=== PATIENT | male | born 1995 | race Caucasian/White ===

== ENCOUNTER 2019-08-13 15:40 | Inpatient (IN) ==
[2019-08-13] MEDS ORDERED: ACETAMINOPHEN 500 MG TAB PO STA (16:25)
--- NOTE | 2019-08-13 16:47 | XRay Report ---
XR chest 1V portable CLINICAL HISTORY: Shortness of breath COMPARISON STUDY: 06/09/2016 FINDINGS: There is been interval removal of the anterior sternal sutures with a single residual parti al suture visualized.[A valvular prosthesis is visualized. The heart is at the upper limits of normal in size. 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 There is no failure. Ther e is no focal pulmonary consolidation. There are no pleural effusions. IMPRESSION: No active disease in the chest. Electronically signed by: Tyler Bashir M.D. 08/13/2019 4:46 PM
[2019-08-13 17:06] LABS: Basophils # (auto) 0.03 K/uL (0-0.2); Basophils % (auto) 0.7 %; Eosinophils # (auto) 0.19 K/uL (0-0.5); Eosinophils % (auto) 4.3 %; Hematocrit (blood only) 43.4 % (42-52); Hemoglobin 15.3 g/dL (14.0-18.0); Lymphocytes % (auto) 26.9 %; Mean Corpuscular Hgb Conc 35.3 g/dL (32-36); Mean Corpuscular Volume 90.8 fL (80-100); Mean Platelet Volume 9.2 fL (7.4-10.4); Monocytes % (auto) 6.7 %; Neutrophils # (auto) 2.74 K/uL (1.4-6.5); Neutrophils % (auto) 61.4 %; Platelet Count 249 K/uL (130-400); RDW Coefficient of Variation 11.8 % (11.5-14.5); RDW Standard Deviation 39.5 fL (36.4-46.3); Red Blood Count 4.78 M/uL (4.7-6.1); White Blood Count 4.46 K/uL (4.8-10.8)
[2019-08-13 17:08] LABS: Appearance Urine Clear (Clear); Bilirubin Urine Negative (Negative); Blood Urine Negative (Negative); Color Urine Yellow; Glucose Urine UA Negative (Negative); Ketones Urine Negative (Negative); Leukocyte Esterase Urine Negative (Negative); Nitrite Urine Negative (Negative); Protein Urine Negative (Negative); Specific Gravity Urine 1.015 (1.000-1.030); Urobilinogen Urine Negative (Negative)
[2019-08-13 17:23] LABS: INR 4.2 (0.9-1.1); Prothrombin Time 38.5 Seconds (9.0-12.0)
[2019-08-13] MEDS ORDERED: GABAPENTIN 600 MG TAB PO SCH (18:00)
[2019-08-13 18:02] LABS: Acetaminophen < 2 ug/ml (10-30)
[2019-08-13 18:03] LABS: Salicylate < 1.7 mg/dl (2.8-20)
[2019-08-13 18:11] LABS: Amphetamines+Metham, Urine Neg (Neg); Barbiturates, Urine Neg (Neg); Benzodiazepine, Urine Neg (Neg); Cocaine, Urine Neg (Neg); MDMA (Ecstacy), Urine Neg (Neg); Methadone, Urine Neg (Neg); Opiate, Urine Neg (Neg); Phencyclidine, Urine Neg (Neg)
[2019-08-13 18:29] LABS: Alanine Aminotransferase 33 U/L (12-78); Albumin Globulin Ratio 1.3 (0.9-2); Albumin Level 4.5 gm/dl (3.4-5.0); Alkaline Phosphatase 52 U/L (45-117); BUN Creatinine Ratio 20.5 (10-20); Bilirubin,Total 0.3 mg/dl (0.2-1); Blood Urea Nitrogen 19 mg/dl (7-18); Calcium 9.4 mg/dl (8.5-10.1); Carbon Dioxide 27 mmol/L (21-32); Chloride 105 mmol/L (98-107); Creatine Kinase MB < 1.0 ng/ml (0.5-3.6); Creatinine Clr Calc Pharmacy 103.6 ml/min; Est GFR (African American) 130.1; Est GFR (Non-African American) 112.2; Globulin 3.5 gm/dl (2.5-4.0); Glucose 93 mg/dl (70-99); Sodium 135 mmol/L (136-145); Troponin I < 0.015 ng/ml (0-0.045)
--- NOTE | 2019-08-13 19:35 | Emergency Department Note ---
Entered by Alyson Diaz acting as a scribe for History of Present Illness General Chief complaint: Mental Health Evaluation Stated complaint: MENTAL HEALTH EVAL Time Seen by Provider: 08/13/19 16:07 Source: patient History of Present Illness Provider complaint: Mental Health Evaluation Onset (ago): day(s) 1 Location: head Maximum Pain Intensity: 3 Relieved By: + none Exacerbated By: + none Associated symptoms: + other (Positive SI) The patient is a 24 year old male who presents to the Emergency Room for a mental health evaluation for symptoms that began yesterday. The patient states his symptoms are not relieved nor exacerbated by anything specific. The patient reports experiencing suicidal ideation and has been researching plans online to use nitrous oxide. The patient reports feeling like school is "pointless but denies having problems at home. The patient mentioned he has an extensive cardiac history which he takes Coumadin for and his cardiac surgeries have left him with chronic pain.The patient states that he sees a psychiatrist at [facility] every 6 weeks and they became concerned about his well being. Home Medications Home Medications Medication Instructions Recorded Confirmed Type acetaminophen 1,000 mg PO QID PRN 08/13/19 08/13/19 History diphenhydramine HCl [Benadryl] 25 mg PO HS PRN 08/13/19 08/13/19 History duloxetine [Cymbalta] 120 mg PO DAILY 08/13/19 08/13/19 History fexofenadine-pseudoephedrine 1 tab PO QAM 08/13/19 08/13/19 History [Archana-D 24 Hour] gabapentin 600 mg PO TID 08/13/19 08/13/19 History lisinopril [Zestril] 10 mg PO DAILY 08/13/19 08/13/19 History quetiapine [Seroquel] 100 mg PO HS 08/13/19 08/13/19 History terbinafine HCl 1 applic TOPICAL DAILY 08/13/19 08/13/19 History warfarin 3 mg PO [id number] 08/13/19 08/13/19 History warfarin [Coumadin] 2 mg PO [id number] 08/13/19 08/13/19 History Allergies Allergy/AdvReac Type Severity Reaction Status Date / Time doxycycline Allergy Unknown HIVES Verified 08/13/19 20:15 Tetracyclines Allergy Unknown Hives Verified 08/13/19 20:15 measles, mumps, and rubella Allergy Unknown Verified 08/13/19 20:15 vaccine [From M-M-R II] sepideh Allergy Severe Uncoded 08/14/19 02:21 Past Med/Surg History Medical History (Updated 08/18/19 @ 18:31 by Ferdinand Dockery MD) Ascending aorta dilatation Depression Pacemaker Family History Other No pertinent family history in first degree relatives Social History Preferred Language: Kyrgyz Communication Ability: Effective 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 and A total of 10 systems reviewed and were otherwise negative Physical Exam Vital Signs Vital Signs - 24 hr 08/13/19 15:48 08/13/19 17:51 Temperature 36.4 C L Temperature Source Oral Pulse Rate 86 Pulse Rate [Finger] 82 Respiratory Rate 16 18 Respiratory Effort / Characteristics Non-Labored Spontaneous Respiratory Depth Normal Blood Pressure 147/85 H Blood Pressure [Left Arm] 121/73 Blood Pressure Mean 105 Blood Pressure Mean [Left Arm] 89 Blood Pressure Position Sitting Pulse Oximetry 98 100 Oxygen Delivery Method Room Air Room Air Sepsis Recent Fever Within 48 Hours No Sepsis New/Unexplained Change in Mental Status No Sepsis Action Taken by Nursing No Action Required GENERAL: Awake, alert, well-appearing, in no acute distress HENT: Normocephalic, atraumatic. Oropharynx unremarkable. EYES: Normal conjunctiva. Sclera non-icteric. NECK: Supple. No nuchal rigidity. FROM. No JVD. RESPIRATORY: Clear to auscultation. CARDIAC: Regular rate, normal rhythm. Extremities warm and well perfused. Pulses equal. ABDOMEN: Soft, non-distended. No tenderness to palpation. No rebound or guarding. No masses. RECTAL: Deferred. MUSCULOSKELETAL: Chest examination reveals no tenderness. The back is symmetrical on inspection without obvious abnormality. There is no CVA tenderness to palpation. No joint edema. LOWER EXTREMITIES: Calves are equal size bilaterally and non-tender. No edema. No discoloration. NEURO: Normal sensorium. No sensory or motor deficits noted. SKIN: No rash or jaundice noted. Course Course 1616: Past medical records reviewed. The patient was evaluated in room A07. A complete history and physical exam was performed. Administered Medications Acetaminophen (Tylenol) 650 mg PO Q4H PRN PRN Reason: Pain Stop: 09/14/19 07:58 Last Admin: 08/16/19 07:46 Dose: 650 mg Documented by: [id number] Diphenhydramine HCl (Benadryl Capsule) 25 mg PO BID PRN PRN Reason: Sleep Stop: 09/12/19 21:15 Last Admin: 08/16/19 08:50 Dose: 25 mg Documented by: [id number] Duloxetine HCl (Cymbalta) 60 mg PO QAM FRANK; Taper Stop: 08/21/19 08:59 Last Admin: 08/18/19 08:44 Dose: 60 mg Documented by: [id number] Admin: 08/17/19 08:34 Dose: 60 mg Documented by: [id number] Admin: 08/16/19 08:49 Dose: 90 mg Documented by: [id number] Admin: 08/15/19 08:19 Dose: 90 mg Documented by: [id number] Famotidine (Pepcid) 20 mg PO BID FRANK Stop: 09/14/19 20:59 Last Admin: 08/18/19 08:44 Dose: 20 mg Documented by: [id number] Admin: 08/17/19 21:17 Dose: 20 mg Documented by: [id number] Admin: 08/17/19 08:35 Dose: 20 mg Documented by: [id number] Admin: 08/16/19 22:14 Dose: 20 mg Documented by: [id number] Admin: 08/16/19 08:49 Dose: 20 mg Documented by: [id number] Admin: 08/15/19 22:26 Dose: 20 mg Documented by: [id number] Fexofenadine HCl/Pseudoephedrine (Archana-D 12 Hr) 1 tab PO QAM FRANK Stop: 09/13/19 08:59 Last Admin: 08/18/19 08:43 Dose: 1 tab Documented by: [id number] Admin: 08/17/19 08:33 Dose: 1 tab Documented by: [id number] Admin: 08/16/19 08:50 Dose: 1 tab Documented by: [id number] Admin: 08/15/19 08:18 Dose: 1 tab Documented by: [id number] Admin: 08/14/19 08:44 Dose: 1 tab Documented by: [id number] Gabapentin (Neurontin) 600 mg PO TIDM FRANK Stop: 09/15/19 17:44 Last Admin: 08/18/19 18:05 Dose: 600 mg Documented by: [id number] Admin: 08/18/19 12:44 Dose: 600 mg Documented by: [id number] Admin: 08/18/19 08:44 Dose: 600 mg Documented by: [id number] Admin: 08/17/19 17:28 Dose: 600 mg Documented by: [id number] Admin: 08/17/19 12:32 Dose: 600 mg Documented by: [id number] Admin: 08/17/19 08:35 Dose: 600 mg Documented by: [id number] Admin: 08/16/19 17:21 Dose: 600 mg Documented by: [id number] Hydroxyzine HCl (Vistaril) 25 mg PO Q4H PRN PRN Reason: Anxiety Stop: 09/12/19 20:56 Last Admin: 08/15/19 10:43 Dose: 25 mg Documented by: [id number] Lisinopril (Zestril) 10 mg PO [facility] Stop: 09/13/19 21:59 Last Admin: 08/17/19 21:17 Dose: 10 mg Documented by: [id number] Admin: 08/16/19 22:15 Dose: 10 mg Documented by: [id number] Admin: 08/15/19 22:27 Dose: 10 mg Documented by: [id number] Admin: 08/14/19 21:28 Dose: 10 mg Documented by: [id number] Quetiapine Fumarate (Seroquel) 100 mg PO [facility] Stop: 09/13/19 20:59 Last Admin: 08/17/19 21:17 Dose: 100 mg Documented by: [id number] Admin: 08/16/19 22:15 Dose: 100 mg Documented by: [id number] Admin: 08/15/19 22:26 Dose: 100 mg Documented by: [id number] Admin: 08/14/19 21:14 Dose: 100 mg Documented by: [id number] Admin: 08/14/19 00:05 Dose: 100 mg Documented by: [id number] Terbinafine HCl (Lamisil At) 1 appln EXT DAILY FRANK Stop: 09/13/19 08:59 Last Admin: 08/18/19 08:47 Dose: 1 appln Documented by: [id number] Admin: 08/17/19 08:34 Dose: Not Given Documented by: [id number] Admin: 08/16/19 08:54 Dose: Not Given Documented by: [id number] Admin: 08/15/19 08:26 Dose: Not Given Documented by: [id number] Admin: 08/14/19 08:46 Dose: 1 appln Documented by: [id number] Venlafaxine HCl (Effexor Extended Release) 75 mg PO QAM FRANK; Taper Stop: 09/18/19 08:59 Last Admin: 08/18/19 08:44 Dose: 75 mg Documented by: [id number] Admin: 08/17/19 08:34 Dose: 75 mg Documented by: [id number] Admin: 08/16/19 08:49 Dose: 37.5 mg Documented by: [id number] Admin: 08/15/19 08:19 Dose: 37.5 mg Documented by: [id number] Warfarin Sodium (Coumadin) 3 mg PO [id number]@1600 FRANK Stop: 09/13/19 15:59 Last Admin: 08/18/19 15:57 Dose: 3 mg Documented by: [id number] Warfarin Sodium (Coumadin) 2 mg PO [id number]@1600 FRANK Stop: 09/13/19 15:59 Last Admin: 08/17/19 16:15 Dose: 2 mg Documented by: [id number] Admin: 08/16/19 15:54 Dose: 2 mg Documented by: [id number] Admin: 08/15/19 15:30 Dose: 2 mg Documented by: [id number] Admin: 08/14/19 16:00 Dose: 2 mg Documented by: [id number] Discontinued Medications Acetaminophen (Tylenol) 1,000 mg PO NOW STA Stop: 08/13/19 16:26 Last Admin: 08/13/19 17:55 Dose: Not Given Documented by: [id number] Acetaminophen (Tylenol) 1,000 mg PO QID PRN PRN Reason: Pain Stop: 09/12/19 21:14 Last Admin: 08/15/19 06:05 Dose: 500 mg Documented by: [id number] Admin: 08/14/19 22:17 Dose: 1,000 mg Documented by: [id number] Acetaminophen (Tylenol) 500 mg PO NOW STA Stop: 08/15/19 08:04 Last Admin: 08/15/19 08:18 Dose: 500 mg Documented by: [id number] Dul[facility]) [facility] Stop: 09/13/19 08:59 Last Admin: 08/14/19 08:44 Dose: 120 mg Documented by: [id number] Famotidine (Pepcid) 20 mg PO QAM [facility] Stop: 09/14/19 08:59 Last Admin: 08/15/19 08:40 Dose: Not Given Documented by: [id number] Gabapentin (Neurontin) 600 mg PO TID [facility] Stop: 09/12/19 17:59 Last Admin: 08/13/19 17:57 Dose: 600 mg Documented by: [id number] Gabapentin (Neurontin) 600 mg PO TID [facility] Stop: 09/13/19 08:59 Last Admin: 08/16/19 13:32 Dose: 600 mg Documented by: [id number] Admin: 08/16/19 08:49 Dose: 600 mg Documented by: [id number] Admin: 08/15/19 22:27 Dose: 600 mg Documented by: [id number] Admin: 08/15/19 14:44 Dose: 600 mg Documented by: [id number] Admin: 08/15/19 08:19 Dose: 600 mg Documented by: [id number] Admin: 08/14/19 21:14 Dose: 600 mg Documented by: [id number] Admin: 08/14/19 13:34 Dose: 600 mg Documented by: [id number] Admin: 08/14/19 08:45 Dose: 600 mg Documented by: [id number] Medical Decision Making Differential Diagnosis Differential diagnosis: Etiologies such as psychiatric disorder, infection, hypoglycemia, electrolyte abnormalities, cardiac sources, intracerebral event, toxicological process, neurologic disorder, as well as others were entertained. Medical Records Attestation: I reviewed the patient's medical records. Home Medications Current Medication List: was personally reviewed by me Laboratory Data Attestation: I reviewed the patient's lab results. Result diagrams: 08/14/19 07:36 08/14/19 07:36 Lab Results 08/13/19 08/13/19 08/13/19 Range/Units 16:49 16:49 16:49 WBC 4.46 L (4.8-10.8) K/uL RBC 4.78 (4.7-6.1) M/uL Hgb 15.3 (14.0-18.0) g/dL Hct 43.4 (42-52) % MCV 90.8 (80-100) fL MCH 32.0 (25-34) pg MCHC 35.3 (32-36) g/dL RDW Std Deviation 39.5 (36.4-46.3) fL RDW Coeff of Nella 11.8 (11.5-14.5) % Plt Count 249 (130-400) K/uL MPV 9.2 (7.4-10.4) fL Immature Gran % (Auto) 0.0 % Neut % (Auto) 61.4 % Lymph % (Auto) 26.9 % Maverick % (Auto) 6.7 % Eos % (Auto) 4.3 % Baso % (Auto) 0.7 % Immature Gran # (Auto) 0.00 (0.00-0.02) K/uL Neut # (Auto) 2.74 (1.4-6.5) K/uL Lymph # (Auto) 1.20 (1.2-3.4) K/uL Maverick # (Auto) 0.30 (0.11-0.59) K/uL Eos # (Auto) 0.19 (0-0.5) K/uL Baso # (Auto) 0.03 (0-0.2) K/uL PT (9.0-12.0) Seconds INR (0.9-1.1) Sodium 135 L (136-145) mmol/L Potassium (3.5-5.1) mmol/L Chloride 105 (98-107) mmol/L Carbon Dioxide 27 (21-32) mmol/L Anion Gap 3.0 (3-11) BUN 19 H (7-18) mg/dl Creatinine 0.94 (0.6-1.4) mg/dl Est Cr Clr Drug Dosing 103.6 ml/min Est GFR ( Amer) 130.1 Est GFR (Non-Af Amer) 112.2 BUN/Creatinine Ratio 20.5 H (10-20) Glucose 93 (70-99) mg/dl Calcium 9.4 (8.5-10.1) mg/dl Total Bilirubin 0.3 (0.2-1) mg/dl AST (15-37) U/L ALT 33 (12-78) U/L Alkaline Phosphatase 52 (45-117) U/L Total Creatine Kinase (39-308) U/L CK-MB (CK-2) < 1.0 (0.5-3.6) ng/ml CK/CKMB % Calc TNP Troponin I < 0.015 (0-0.045) ng/ml Total Protein 8.0 (6.4-8.2) gm/dl Albumin 4.5 (3.4-5.0) gm/dl Globulin 3.5 (2.5-4.0) gm/dl Albumin/Globulin Ratio 1.3 (0.9-2) TSH 1.450 (0.300-4.500) uIu/ml Urine Color Urine Appearance (Clear) Urine pH (4.5-7.5) Ur Specific [place] (1.000-1.030) Urine Protein (Negative) Urine Glucose (UA) (Negative) Urine Ketones (Negative) Urine Blood (Negative) Urine Nitrite (Negative) Urine Bilirubin (Negative) Urine Urobilinogen (Negative) Ur Leukocyte Esterase (Negative) Salicylates < 1.7 L (2.8-20) mg/dl Urine Opiates Screen (Neg) Ur Methadone, Qual (Neg) Acetaminophen < 2 L (10-30) ug/ml Urine Barbiturates (Neg) Ur Phencyclidine (PCP) (Neg) U Amphetamin/Meth Scrn (Neg) MDMA (Ecstasy) Screen (Neg) U Benzodiazepines Scrn (Neg) Ur Cocaine Metabolite (Neg) U Marijuana (THC) Screen (Neg) Ethyl Alcohol mg/dL (0-3) mg/dl 08/13/19 08/13/19 08/13/19 Range/Units 16:49 16:49 16:50 WBC (4.8-10.8) K/uL RBC (4.7-6.1) M/uL Hgb (14.0-18.0) g/dL Hct (42-52) % MCV (80-100) fL MCH (25-34) pg MCHC (32-36) g/dL RDW Std Deviation (36.4-46.3) fL RDW Coeff of Nella (11.5-14.5) % Plt Count (130-400) K/uL MPV (7.4-10.4) fL Immature Gran % (Auto) % Neut % (Auto) % Lymph % (Auto) % Maverick % (Auto) % Eos % (Auto) % Baso % (Auto) % Immature Gran # (Auto) (0.00-0.02) K/uL Neut # (Auto) (1.4-6.5) K/uL Lymph # (Auto) (1.2-3.4) K/uL Maverick # (Auto) (0.11-0.59) K/uL Eos # (Auto) (0-0.5) K/uL Baso # (Auto) (0-0.2) K/uL PT 38.5 H (9.0-12.0) Seconds INR 4.2 H (0.9-1.1) Sodium (136-145) mmol/L Potassium (3.5-5.1) mmol/L Chloride (98-107) mmol/L Carbon Dioxide (21-32) mmol/L Anion Gap (3-11) BUN (7-18) mg/dl Creatinine (0.6-1.4) mg/dl Est Cr Clr Drug Dosing ml/min Est GFR ( Amer) Est GFR (Non-Af Amer) BUN/Creatinine Ratio (10-20) Glucose (70-99) mg/dl Calcium (8.5-10.1) mg/dl Total Bilirubin (0.2-1) mg/dl AST (15-37) U/L ALT (12-78) U/L Alkaline Phosphatase (45-117) U/L Total Creatine Kinase (39-308) U/L CK-MB (CK-2) (0.5-3.6) ng/ml CK/CKMB % Calc Troponin I (0-0.045) ng/ml Total Protein (6.4-8.2) gm/dl Albumin (3.4-5.0) gm/dl Globulin (2.5-4.0) gm/dl Albumin/Globulin Ratio (0.9-2) TSH (0.300-4.500) uIu/ml Urine Color Urine Appearance (Clear) Urine pH (4.5-7.5) Ur Specific [place] (1.000-1.030) Urine Protein (Negative) Urine Glucose (UA) (Negative) Urine Ketones (Negative) Urine Blood (Negative) Urine Nitrite (Negative) Urine Bilirubin (Negative) Urine Urobilinogen (Negative) Ur Leukocyte Esterase (Negative) Salicylates (2.8-20) mg/dl Urine Opiates Screen Neg (Neg) Ur Methadone, Qual Neg (Neg) Acetaminophen (10-30) ug/ml Urine Barbiturates Neg (Neg) Ur Phencyclidine (PCP) Neg (Neg) U Amphetamin/Meth Scrn Neg (Neg) MDMA (Ecstasy) Screen Neg (Neg) U Benzodiazepines Scrn Neg (Neg) Ur Cocaine Metabolite Neg (Neg) U Marijuana (THC) Screen Neg (Neg) Ethyl Alcohol mg/dL < 3.0 (0-3) mg/dl 08/13/19 Range/Units 16:50 WBC (4.8-10.8) K/uL RBC (4.7-6.1) M/uL Hgb (14.0-18.0) g/dL Hct (42-52) % MCV (80-100) fL MCH (25-34) pg MCHC (32-36) g/dL RDW Std Deviation (36.4-46.3) fL RDW Coeff of Nella (11.5-14.5) % Plt Count (130-400) K/uL MPV (7.4-10.4) fL Immature Gran % (Auto) % Neut % (Auto) % Lymph % (Auto) % Maverick % (Auto) % Eos % (Auto) % Baso % (Auto) % Immature Gran # (Auto) (0.00-0.02) K/uL Neut # (Auto) (1.4-6.5) K/uL Lymph # (Auto) (1.2-3.4) K/uL Maverick # (Auto) (0.11-0.59) K/uL Eos # (Auto) (0-0.5) K/uL Baso # (Auto) (0-0.2) K/uL PT (9.0-12.0) Seconds INR (0.9-1.1) Sodium (136-145) mmol/L Potassium (3.5-5.1) mmol/L Chloride (98-107) mmol/L Carbon Dioxide (21-32) mmol/L Anion Gap (3-11) BUN (7-18) mg/dl Creatinine (0.6-1.4) mg/dl Est Cr Clr Drug Dosing ml/min Est GFR ( Amer) Est GFR (Non-Af Amer) BUN/Creatinine Ratio (10-20) Glucose (70-99) mg/dl Calcium (8.5-10.1) mg/dl Total Bilirubin (0.2-1) mg/dl AST (15-37) U/L ALT (12-78) U/L Alkaline Phosphatase (45-117) U/L Total Creatine Kinase (39-308) U/L CK-MB (CK-2) (0.5-3.6) ng/ml CK/CKMB % Calc Troponin I (0-0.045) ng/ml Total Protein (6.4-8.2) gm/dl Albumin (3.4-5.0) gm/dl Globulin (2.5-4.0) gm/dl Albumin/Globulin Ratio (0.9-2) TSH (0.300-4.500) uIu/ml Urine Color Yellow Urine Appearance Clear (Clear) Urine pH 5.0 (4.5-7.5) Ur Specific [place] 1.015 (1.000-1.030) Urine Protein Negative (Negative) Urine Glucose (UA) Negative (Negative) Urine Ketones Negative (Negative) Urine Blood Negative (Negative) Urine Nitrite Negative (Negative) Urine Bilirubin Negative (Negative) Urine Urobilinogen Negative (Negative) Ur Leukocyte Esterase Negative (Negative) Salicylates (2.8-20) mg/dl Urine Opiates Screen (Neg) Ur Methadone, Qual (Neg) Acetaminophen (10-30) ug/ml Urine Barbiturates (Neg) Ur Phencyclidine (PCP) (Neg) U Amphetamin/Meth Scrn (Neg) MDMA (Ecstasy) Screen (Neg) U Benzodiazepines Scrn (Neg) Ur Cocaine Metabolite (Neg) U Marijuana (THC) Screen (Neg) Ethyl Alcohol mg/dL (0-3) mg/dl Imaging Data Radiologist's Impression: Radiology results as stated below per my review and the radiologist's interpretation: XR chest 1V portable CLINICAL HISTORY: Shortness of breath COMPARISON STUDY: 06/09/2016 FINDINGS: There is been interval removal of the anterior sternal sutures with a single residual partial suture visualized.[A valvular prosthesis is visualized. The heart is at the upper limits of normal in size. 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 There is no failure. There is no focal pulmonary consolidation. There are no pleural effusions. IMPRESSION: No active disease in the chest. Electronically signed by: Tyler Bashir M.D. 08/13/2019 4:46 PM ECG Data Attestation: I personally reviewed and interpreted this ECG as follows: Indication: + other (Mental Health Evaluation) Rate (beats per minute): 83 Rhythm: + other (Atrial sensed ventricular paced rhythm ) ECG Intervals/blocks: + Normal QT-c (QTC of 533) ECG Findings: + PVCs Blood Pressure Blood Pressure Findings: Elevated blood pressure Blood Pressure Disposition: Referred to patients primary care provider MDM Narrative This is a 24-year-old male who presents to the emergency department complaining of mood disorder. The patient reports he has a plan to kill himself using nitrous. He is on chronic Coumadin for a valve replacement. His Coumadin here was found to be elevated. I feel he can skip this 1 night. He was medically cleared by me. I did discuss the case with the 3 S. liaison who admitted the anatoliy moore. Patient was in agreement with the treatment plan. Impression & Plan Chronic anticoagulation, Mood disorder Discharge Plan Visit Data *Final* Discharge Date/Time: 08/13/19 21:51 Chief Complaint: Mental Health Evaluation Stated Complaint: MENTAL HEALTH EVAL ED Provider: Ferdinand Dockery Discharge Problem: Chronic anticoagulation, Mood disorder Patient Disposition: Admitted As Inpatient Discharge Instructions Interventions: ED Discharge Assessment Last Done: 08/13/19 21:51 The scribe's documentation has been prepared under my direction and personally reviewed by me in its entirety. I confirm that the note above accurately reflects all work, treatment, procedures, and medical decision making performed by me.
[2019-08-13] MEDS ORDERED: SODIUM CHLORIDE 0.65% NA SOLN 45 ML (OCEAN) PRN (20:57)
[2019-08-13] MEDS ORDERED: BISMUTH SUBSALICYLATE PER ML OMNICELL CHARGE PO PRN (20:57)
[2019-08-13] MEDS ORDERED: ALUMINUM/MAGNESIUM SUSP 30 ML UDC PO PRN (20:57)
[2019-08-13] MEDS ORDERED: MAGNESIUM HYDROXIDE SUSP 30 ML UDC PO PRN (20:57)
[2019-08-14] MEDS: QUETIAPINE FUMARATE 200 MG TAB PO SCH ×2 (00:05→21:14)
[2019-08-14 07:57] LABS: Basophils # (auto) 0.03 K/uL (0-0.2); Basophils % (auto) 0.7 %; Eosinophils % (auto) 4.5 %; Hematocrit (blood only) 42.2 % (42-52); Hemoglobin 14.9 g/dL (14.0-18.0); Lymphocytes # (auto) 1.54 K/uL (1.2-3.4); Mean Corpuscular Hgb Conc 35.3 g/dL (32-36); Mean Corpuscular Volume 90.8 fL (80-100); Mean Platelet Volume 9.3 fL (7.4-10.4); Monocytes # (auto) 0.33 K/uL (0.11-0.59); Monocytes % (auto) 7.5 %; Neutrophils % (auto) 52.3 %; Platelet Count 230 K/uL (130-400); RDW Coefficient of Variation 11.9 % (11.5-14.5); Red Blood Count 4.65 M/uL (4.7-6.1)
[2019-08-14 08:09] LABS: INR 3.4 (0.9-1.1); Prothrombin Time 32.1 Seconds (9.0-12.0)
[2019-08-14 08:33] LABS: BUN Creatinine Ratio 16.6 (10-20); Calcium 9.6 mg/dl (8.5-10.1); Creatinine Clr Calc Pharmacy 95.7 ml/min; Est GFR (African American) 125.2; Est GFR (Non-African American) 108.1; Magnesium 2.4 mg/dl (1.8-2.4)
[2019-08-14] MEDS: FEXOFENADINE 60MG/PSEUDOEPHEDRINE 120MG TAB PO SCH (08:44)
[2019-08-14] MEDS: GABAPENTIN 600 MG TAB PO SCH ×3 (08:45→21:14)
[2019-08-14] MEDS: TERBINAFINE CR 30 GM TUBE EXT SCH (08:46)
[2019-08-14] MEDS ORDERED: lisinopriL 10 MG TAB PO SCH (09:00)
[2019-08-14] MEDS ORDERED: DULOXETINE HCL 60 MG CAP PO SCH (09:00)
--- NOTE | 2019-08-14 09:23 | History & Physical ---
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 He has a PA locally but no therapist, and is interested in case management and therapist locally. He would like to try a different antidepressant as he's lost yrn in duloxetine, and agreed to a trial of venlafaxine. Inpatient treatment is medically necessary due to the risk for suicide if discharged. (1) Depression: 08/14 -continue voluntary inpatient treatment for worsening mood and torin cidal ideation with multiple plans. Every 15 minute checks for safety. -Encourage group participation, work on healthy coping skills and discharge safety plan. -Coordinate with outpatient clinicians (including psychiatrist in his home town whom he still sees); family meeting with supports. -Discussed several options, including titrating quetiapine (which he declined due to side effects on higher doses in the past), switching quetiapine to another augmenting agent, or switching duloxetine to another antidepressant. Discussed options of SSRIs or SNRI's, and he ultimately agreed to a trial of v enlafaxine XR after review of risks, benefits, and side effects. Orders written for cross taper over the next 6 days; monitor and may need to slow taper if he experiences any side effects. -Will continue quetiapine 100mg HS. Order FLP and FG for monitoring on an atypical antipsychotic, as states he never had them. -Get records from Azucena Alonzo at [facility]. [facility], and help him to follow up on [facility] referral (states he called [facility] multiple times, but never heard back). Depression Type: major depressive disorder Major depression recurrence: recurrent Active/Remission status: currently active Major depression episode severity: severe Psychotic features: without psychotic features Qualified Code(s): F33.2 - Major depressive disorder, recurrent severe without psychotic features Present on Admission?: Yes (2) Pacemaker: 08/14 -was consult placed on admission, and Coumadin held due to INR 4.2. -INR 3.4 today, and Coumadin has been resumed. Appreciate recommendations. 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 Chief Complaint "Well I was having like suicidal thoughts". History of Present Illness Patient presented to the ER yesterday 08/13/2019 on referral from his outpatient physician speech assistant, Azucena Alonzo, at [facility]. He endorsed worsening suicidal thoughts, stated he did not want to live, and had been researching ways to end his life that would be painless. He had been reading about "exit bags," which she described as putting a bag over his head and releasing nitrogen so that he would be unconscious within 2 breaths. He had also looked into getting an IV and allowing blood to drain out of him until he , and jumping out of his apartment window headfirst. He reported hopelessness and the feeling that everything he does is pointless. He reported chronic sternal pain status post cardiac surgery and chronic tinnitus. CBC notable for WBC 4.40 and RBC 4.65, INR 4.2 (3.4 this morning), CMP and TSH normal, UA and toxicology screens negative, troponin and CK-MB negative. 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 EKG showed ventricular placed rhythm with PVCs, QTC 533. A hospitalist consult was placed due to his cardiac disease and supratherapeutic INR. He signed in voluntarily, and was continued on his home medications: Gabapentin 600 mg 3 times daily and 100 mg at bedtime, duloxetine 120 mg daily, and quetiapine 100 mg at bedtime. On my assessment, he reports depression since around 14 years old, with treatment starting about a year ago. He never fully recovered, but SI got better. Depressive symptoms include difficulty falling and staying asleep, sadness, crying spells, restlessness, hopelessness, and difficulty functioning. Exacerbated by chronic pain, school, and tinnitus. Reports SI in the past (when hospitalized last year), and started have SI again a couple of weeks ago, at which point he started seeing PA at [facility] more often. He admits to research as above, looking for a painless way to kill himself. He states the only thing that's stopped him from ending his life is lack of access to the things he would need, noting he wants to use a nonviolent, painless method. He has looked at his medication and tried to figure out what he could overdose on, and reports thinking a lot about using nitrogen or some other gas that would replace oxygen to "knock me out, suffocate," as this would be painless. He denies that he has access to gas, but says "that would be the next step." Has had problems with anxiety, h/o ZAYRA, but reports currently depression is worse than anxiety. Reports excessive worry, difficulty managing worry, and sleep impairment. Denies h/o jose antonio, psychosis, and PTSD. Notes he "pays too close attention to symptoms in my body," for example his pain and tinnitus, but denies other OCD symptoms. States current medications were started at [facility] and initially seemed to help, but then symptoms worsened a couple of months ago, and duloxetine was increased, which initially seemed to help. Quetiapine was initially 50mg HS but when sleep worsened it was increased to 100mg HS (about a month ago). The only side effect he's noted is weight gain (10 lbs in a year, but BMI 20, is not concerned about current weight). Notes he has a "major presentation" next week which he is stressed about, as it is his [employer] project for his major. States he has been "functioning fine, but it's the downtime...feel like I'm wasting so much time, time goes by so slowly." He is frustrated and upset by his sense of un rest/unhappiness, and isn't sure where it is coming from. Notes he is only taking 2 classes "in case my pain flares up." Notes he did better when he also had a job as he had more structure. Past Psychiatric History Previous Psych History: H/o depression since age 14, had brief trial of sertraline but not formal treatment. First got psychiatric treatment last year when hospitalized at [facility] for SI, then did day program. Was diagnosed with MDD and ZAYRA. H/o self injurious behavior by punching his legs several years ago "when really stressed." Current Psychiatric Diagnosis: Depression Outpatient Services: MADYSON Chairez at [facility] in [place]. No therapist locally. Psychiatrist at home in the [place] (Dr. Jennifer Villasenor at [facility]) area who he sees every 6 weeks - started after [facility] hospitalization 2 therapists at home - one through insurance and one from a day program he was in whom he sees at times and pays privately. Previously saw therapist at [facility] briefly. Previous Psych Admissions: [facility] - 2018? Do You Have Access To A Gun?: No History of Previous Suicide Attempt: Yes Describe Attempts in the Past: Put a plastic bag over head to strangle 09/2017 Past Medication Trials: sertraline - brief trial in , didn't think it was work ing and stopped taking it, also notes he didn't want to take meds and was "protesting against my mom for making me feel like I had psychological issues." quetiapine - was on 150mg in the past and felt it caused his heart to "beat really fast" Allergies Allergy/AdvReac Type Severity Reaction Status Date / Time doxycycline Allergy Unknown HIVES Verified 08/13/19 20:15 Tetracyclines Allergy Unknown Hives Verified 08/13/19 20:15 measles, mumps, and rubella Allergy Unknown Verified 08/13/19 20:15 vaccine [From M-M-R II] sepideh Allergy Severe Uncoded 08/14/19 02:21 Home Medications Home Medications Medication Instructions Recorded Confirmed Type acetaminophen 1,000 mg PO QID PRN 08/13/19 08/13/19 History diphenhydramine HCl [Benadryl] 25 mg PO HS PRN 08/13/19 08/13/19 History duloxetine [Cymbalta] 120 mg PO DAILY 08/13/19 08/13/19 History fexofenadine-pseudoephedrine 1 tab PO QAM 08/13/19 08/13/19 History [Archana-D 24 Hour] gabapentin 600 mg PO TID 08/13/19 08/13/19 History lisinopril [Zestril] 10 mg PO DAILY 08/13/19 08/13/19 History quetiapine [Seroquel] 100 mg PO HS 08/13/19 08/13/19 History terbinafine HCl 1 applic TOPICAL DAILY 08/13/19 08/13/19 History warfarin 3 mg PO 2XWK 08/13/19 08/13/19 History warfarin [Coumadin] 2 mg PO USEASDIRECTD 08/13/19 08/13/19 History Family History Family History of: Depression Family Mental Health History Comment: Mother: Depression Alcohol History Hx of Alcohol Use Over the Past 12 Months: No AUDIT Total Score: 0 Smoking Use Have You Smoked or Used Tobacco Products in the Last 30 Days: No Smoking Status: Never smoker Substance History Hx of Prescription Med Misuse Over the Past 12 Months: No Hx of Over the Counter Med Misuse Over the Past 12 Months: No Hx of Inhalent Misuse Over the Past 12 Months: No Hx of Organic Substance Use Over the Past 12 Months: No Hx of Illegal Substances/Street Drug Use Over Past 12 Months: No Problems as a Result of Past Substance Use: None Identified Personal History Living Arrangements: Apartment Living Arrangements Comments: From [facility] Childhood: Raised by both parents, has one younger sister who is also at [employer]. Reports good relationship with family. Highest Grade Completed: College Highest Grade Completed Comment: [employer] senior majoring in electrical engineering Employment Status: Student Marital Status: Single Beliefs That Will Affect Care: None Current Legal Problems: No Hx Traumatic Life Events: No Additional Comments: Volunteers at [employer], and joined a [employer] club Patient History Medical History (Updated 08/14/19 @ 10:24 by Lawanda Burch MD) Ascending aorta dilatation Depression Pacemaker Family History Other No pertinent family history in first degree relatives Social History Preferred Language: Irish Communication Ability: Effective Bell Spinner Sousaphones Required: No Beliefs That Will Affect Care: None Feels Safe at Home: Yes Smoking Status: Never smoker Review of Systems Review of Systems: All systems reviewed & are unremarkable except as noted in HPI & below chest pain, tinnitus Physical Exam Psychiatric: Orientation: alert, oriented x 3 and cooperative Apperance: appropriately dressed, appropriately groomed and appeared stated age thin, casually dressed in corduroys and a [employer] sweatshirt Eye Contact: + fair eye contact Motor Behavior: steady gait and station and no abnormal motor movements soft voice Affect: + depressed affect, + constricted affect and mood congruent with affect Mood: + depressed mood Thought Process: goal directed thought process Thought Content: reality based without delusions Suicidal Thoughts: + reports suicidal thoughts Homicidal Thoughts: denies homicidal thoughts Hallucinations: no auditory hallucinations and no visual h allucinations Cognition: recent memory grossly intact, remote memory grossly intact, attention grossly intact and language grossly intact Estimated Intelligence: consistent with education level Insight: + fair insight Judgement: + fair judgement Vital Signs (Past 24 Hours): Last Vital Signs Temp 36.5 C 08/14/19 07:01 Pulse 90 08/14/19 07:02 Resp 16 08/14/19 07:01 BP 101/63 08/14/19 07:02 Pulse Ox 98 08/13/19 22:12 Exam Statement: A physical exam was performed in the ER prior to admission to the unit by Dr. Ferdinand Dockery. I accept that physical as correct/medical clearance for the inpatient physical exam. Results & Data Laboratory Results Laboratory Results - last 24 hr 08/13/19 08/13/19 08/13/19 16:49 16:49 16:49 WBC 4.46 L RBC 4.78 Hgb 15.3 Hct 43.4 MCV 90.8 MCH 32.0 MCHC 35.3 RDW Std Deviation 39.5 RDW Coeff of Nella 11.8 Plt Count 249 MPV 9.2 Immature Gran % (Auto) 0.0 Neut % (Auto) 61.4 Lymph % (Auto) 26.9 [place] % (Auto) 6.7 Eos % (Auto) 4.3 Baso % (Auto) 0.7 Immature Gran # (Auto) 0.00 Neut # (Auto) 2.74 Lymph # (Auto) 1.20 [place] # (Auto) 0.30 Eos # (Auto) 0.19 Baso # (Auto) 0.03 PT INR Sodium 135 L Potassium Chloride 105 Carbon Dioxide 27 Anion Gap 3.0 BUN 19 H Creatinine 0.94 Est Cr Clr Drug Dosing 103.6 Est GFR ( Amer) 130.1 Est GFR (Non-Af Amer) 112.2 BUN/Creatinine Ratio 20.5 H Glucose 93 Calcium 9.4 Magnesium Total Bilirubin 0.3 AST ALT 33 Alkaline Phosphatase 52 Total Creatine Kinase CK-MB (CK-2) < 1.0 CK/CKMB % Calc TNP Troponin I < 0.015 Total Protein 8.0 Albumin 4.5 Globulin 3.5 Albumin/Globulin Ratio 1.3 TSH 1.450 Urine Color Urine Appearance Urine pH Ur Specific [place] Urine Protein Urine Glucose (UA) Urine Ketones Urine Blood Urine Nitrite Urine Bilirubin Urine Urobilinogen Ur Leukocyte Esterase Salicylates < 1.7 L Urine Opiates Screen Ur Methadone, Qual Acetaminophen < 2 L Urine Barbiturates Ur Phencyclidine (PCP) U Amphetamin/Meth Scrn MDMA (Ecstasy) Screen U Benzodiazepines Scrn Ur Cocaine Metabolite U Marijuana (THC) Screen Ethyl Alcohol mg/dL 08/13/19 08/13/19 08/13/19 16:49 16:49 16:50 WBC RBC Hgb Hct MCV MCH MCHC RDW Std Deviation RDW Coeff of Nella Plt Count MPV Immature Gran % (Auto) Neut % (Auto) Lymph % (Auto) [place] % (Auto) Eos % (Auto) Baso % (Auto) Immature Gran # (Auto) Neut # (Auto) Lymph # (Auto) [place] # (Auto) Eos # (Auto) Baso # (Auto) PT 38.5 H INR 4.2 H Sodium Potassium Chloride Carbon Dioxide Anion Gap BUN Creatinine Est Cr Clr Drug Dosing Est GFR ( Amer) Est GFR (Non-Af Amer) BUN/Creatinine Ratio Glucose Calcium Magnesium Total Bilirubin AST ALT Alkaline Phosphatase Total Creatine Kinase CK-MB (CK-2) CK/CKMB % Calc Troponin I Total Protein Albumin Globulin Albumin/Globulin Ratio TSH Urine Color Urine Appearance Urine pH Ur Specific [place] Urine Protein Urine Glucose (UA) Urine Ketones Urine Blood Urine Nitrite Urine Bilirubin Urine Urobilinogen Ur Leukocyte Esterase Salicylates Urine Opiates Screen Neg Ur Methadone, Qual Neg Acetaminophen Urine Barbiturates Neg Ur Phencyclidine (PCP) Neg U Amphetamin/Meth Scrn Neg MDMA (Ecstasy) Screen Neg U Benzodiazepines Scrn Neg Ur Cocaine Metabolite Neg U Marijuana (THC) Screen Neg Ethyl Alcohol mg/dL < 3.0 08/13/19 08/14/19 08/14/19 16:50 07:36 07:36 WBC 4.40 L RBC 4.65 L Hgb 14.9 Hct 42.2 MCV 90.8 MCH 32.0 MCHC 35.3 RDW Std Deviation 39.0 RDW Coeff of Nella 11.9 Plt Count 230 MPV 9.3 Immature Gran % (Auto) 0.0 Neut % (Auto) 52.3 Lymph % (Auto) 35.0 [place] % (Auto) 7.5 Eos % (Auto) 4.5 Baso % (Auto) 0.7 Immature Gran # (Auto) 0.00 Neut # (Auto) 2.30 Lymph # (Auto) 1.54 [place] # (Auto) 0.33 Eos # (Auto) 0.20 Baso # (Auto) 0.03 PT 32.1 H INR 3.4 H Sodium Potassium Chloride Carbon Dioxide Anion Gap BUN Creatinine Est Cr Clr Drug Dosing Est GFR ( Amer) Est GFR (Non-Af Amer) BUN/Creatinine Ratio Glucose Calcium Magnesium Total Bilirubin AST ALT Alkaline Phosphatase Total Creatine Kinase CK-MB (CK-2) CK/CKMB % Calc Troponin I Total Protein Albumin Globulin Albumin/Globulin Ratio TSH Urine Color Yellow Urine Appearance Clear Urine pH 5.0 Ur Specific [place] 1.015 Urine Protein Negative Urine Glucose (UA) Negative Urine Ketones Negative Urine Blood Negative Urine Nitrite Negative Urine Bilirubin Negative Urine Urobilinogen Negative Ur Leukocyte Esterase Negative Salicylates Urine Opiates Screen Ur Methadone, Qual Acetaminophen Urine Barbiturates Ur Phencyclidine (PCP) U Amphetamin/Meth Scrn MDMA (Ecstasy) Screen U Benzodiazepines Scrn Ur Cocaine Metabolite U Marijuana (THC) Screen Ethyl Alcohol mg/dL 08/14/19 07:36 WBC RBC Hgb Hct MCV MCH MCHC RDW Std Deviation RDW Coeff of Nella Plt Count MPV Immature Gran % (Auto) Neut % (Auto) Lymph % (Auto) [place] % (Auto) Eos % (Auto) Baso % (Auto) Immature Gran # (Auto) Neut # (Auto) Lymph # (Auto) [place] # (Auto) Eos # (Auto) Baso # (Auto) PT INR Sodium 139 Potassium 4.0 Chloride 108 H Carbon Dioxide 27 Anion Gap 4.0 BUN 16 Creatinine 0.97 Est Cr Clr Drug Dosing 95.7 Est GFR ( Amer) 125.2 Est GFR (Non-Af Amer) 108.1 BUN/Creatinine Ratio 16.6 Glucose 80 Calcium 9.6 Magnesium 2.4 Total Bilirubin AST ALT Alkaline Phosphatase Total Creatine Kinase CK-MB (CK-2) CK/CKMB % Calc Troponin I Total Protein Albumin Globulin Albumin/Globulin Ratio TSH Urine Color Urine Appearance Urine pH Ur Specific [place] Urine Protein Urine Glucose (UA) Urine Ketones Urine Blood Urine Nitrite Urine Bilirubin Urine Urobilinogen Ur Leukocyte Esterase Salicylates Urine Opiates Screen Ur Methadone, Qual Acetaminophen Urine Barbiturates Ur Phencyclidine (PCP) U Amphetamin/Meth Scrn MDMA (Ecstasy) Screen U Benzodiazepines Scrn Ur Cocaine Metabolite U Marijuana (THC) Screen Ethyl Alcohol mg/dL Current Inpatient Medications Current Inpatient Medications: Current Inpatient Medications Acetaminophen (Tylenol) 1,000 mg PO QID PRN PRN Reason: Pain Stop: 09/12/19 21:14 Al Hydrox/Mg Hydrox/Simethicone (Maalox) 30 ml PO Q4H PRN PRN Reason: GI Upset Stop: 09/12/19 20:56 Bismuth Subsalicylate (Kaopectate) 15 ml PO PRN PRN PRN Reason: Loose Stool Stop: 09/12/19 20:56 Diphenhydramine HCl (Benadryl Capsule) 25 mg PO HS PRN PRN Reason: Sleep Stop: 09/13/19 20:59 Duloxetine HCl (Cymbalta) 120 mg PO QAM [facility] Stop: 09/13/19 08:59 Last Admin: 08/14/19 08:44 Dose: 120 mg Documented by: Fexofenadine HCl/Pseudoephedrine (Archana-D 12 Hr) 1 tab PO QAM FRANK Stop: 09/13/19 08:59 Last Admin: 08/14/19 08:44 Dose: 1 tab Documented by: Gabapentin (Neurontin) 600 mg PO TID FRANK Stop: 09/13/19 08:59 Last Admin: 08/14/19 08:45 Dose: 600 mg Documented by: Hydroxyzine HCl (Vistaril) 50 mg PO HSZ PRN PRN Reason: Insomnia Stop: 09/12/19 20:56 Hydroxyzine HCl (Vistaril) 25 mg PO Q4H PRN PRN Reason: Anxiety Stop: 09/12/19 20:56 Magnesium Hydroxide (Milk Of Magnesia) 30 ml PO DAILY PRN PRN Reason: Constipation Stop: 09/12/19 20:56 Quetiapine Fumarate (Seroquel) 100 mg PO HS FRANK Stop: 09/13/19 20:59 Last Admin: 08/14/19 00:05 Dose: 100 mg Documented by: Sodium Chloride (Rye Nasal) 1 - 2 sprays NA PRN PRN PRN Reason: Nasal Dryness/Congestion Stop: 09/12/19 20:56 Terbinafine HCl (Lamisil At) 1 appln EXT DAILY FRANK Stop: 09/13/19 08:59 Last Admin: 08/14/19 08:46 Dose: 1 appln Documented by:
--- NOTE | 2019-08-14 09:36 | Hospitalist Progress Note ---
Date of Service August 14, 2019 Assessment & Plan (1) Chronic anticoagulation: - chronically on warfarin for anticoagulation 2/2 artificial heart valve placement - supratherapeutic on admission with INR of 4.2. Dropped to 3.4 this AM - will restart warfarin today; takes 2 and 3 mg on alternating days - received communication from [employer] that goal range for his INR is 2-3 - will also restart 10 mg lisinopril per [employer] [facility]'s recommendation (2) Depression: - management per Psychiatry Supervising Physician Co-Signing Physician Notes Attending attestation Pt seen and examined in concert with Dr. Green. In agreement with the documented findings as noted in the resident documentation with any exceptions or additions as noted here. Intermittent variable central chest pain which waxes and wanes is occasionally worse at night phillip when doesn't eat before bed. Has previously tolerated PPI with ?benefit, would be willing to trial H2 saadia. Adherent to coumadin therapy. Currently experiencing urges to fantasize about suicide, understand they are intrusive but having difficulty, finds them comforting, which he understands is pathologic. On examination, S1/S2 present with click and blowing murmur c/w AVR. CTAB. CNII- XII grossly intact. Depression with suicidal ideation - management per psychiatric team AVR with chronic anticoagulation 2/2 congenital heart abn - restart warfarin as noted. trend INR with goal 2-3. Start lisinopril 10mg. Obtain full CV records from [facility] Chronic chest pain - continue gabapentin, venlafaxine. Add famotidine 40mg daily. Monitor for changes. APAP for acute pain. Else see resident documentation as noted. 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 Says he has chronic chest pain that has been there since his valve replacement surgery. Pain is central in the chest, mostly an ache that gets worse when laying down for long periods of time or sitting still upright while driving for longer periods of time. Denies any radiation of pain. Has tried nexium and tums for pain and found little to no improvement. Manages pain mostly with combination of Gabapentin, Cymbalta and tylenol as needed. No pain with swallowing, hoarse voice, sensation of acid reflux. Review of Systems Constitutional: no fever, no chills, no body aches and no fatigue Respiratory: no cough and no dyspnea Cardiovascular: no chest pain, no dyspnea and no edema Gastrointestinal: no abdominal pain, no nausea, no vomiting, no constipation and no diarrhea/loose stools Psychiatric: + depression and + abnormal sleep pattern; no change in appetite and no difficulty concentrating + suicidal ideation multiple times per day. Fantasizes about suicide as an escape from reality. Physical Exam Constitutional: cooperative; no acute distress and not ill appearing Neck: normal visual inspection Respiratory: normal respiratory effort and able to speak in complete sentences; no respiratory distress, no labored breathing, no retractions, no cough and no audible wheezes Auscultation: lungs clear to auscultation bilaterally; no crackles, no rales, no rhonchi and no wheezes Cardiovascular: Rate/Rhythm: regular rate and regular rhythm Heart Sounds: normal S1 and normal S2; no gallop, no murmur and no cardiac rub Results & Data Vital Signs (Past 12 Hours) Vital Signs Temp Pulse Pulse Resp BP BP Pulse Ox 08/14/19 07:02 90 101/63 08/14/19 07:01 36.5 C 82 16 103/58 L 08/13/19 22:12 36.9 C 82 16 131/83 98 08/13/19 21:51 85 16 124/82 98 Resident Activity Tracking Resident Involvement: Resident Care Provided Care Provided: Adult Hospital Medicine
[2019-08-14] MEDS: WARFARIN SOD 2 MG TAB PO SCH (16:00)
[2019-08-14] MEDS: WARFARIN SOD 3 MG TAB PO SCH (16:01)
[2019-08-14] MEDS: lisinopriL 10 MG TAB PO SCH (21:28)
[2019-08-14] MEDS: ACETAMINOPHEN 500 MG TAB PO PRN (22:17)
[2019-08-15] MEDS: ACETAMINOPHEN 500 MG TAB PO PRN (06:05)
[2019-08-15 08:02] LABS: INR 2.6 (0.9-1.1); Prothrombin Time 25.2 Seconds (9.0-12.0)
[2019-08-15] MEDS ORDERED: ACETAMINOPHEN 500 MG TAB PO STA (08:03)
[2019-08-15 08:18] LABS: Glucose Fasting 83 mg/dl (70-99)
[2019-08-15] MEDS: FEXOFENADINE 60MG/PSEUDOEPHEDRINE 120MG TAB PO SCH (08:18)
[2019-08-15] MEDS: GABAPENTIN 600 MG TAB PO SCH ×3 (08:19→22:27)
[2019-08-15] MEDS: DULOXETINE HCL 30 MG CAP PO SCH (08:19)
[2019-08-15] MEDS: VENLAFAXINE HCL XR 37.5 MG CAPXR PO SCH (08:19)
--- NOTE | 2019-08-15 08:21 | Hospitalist Consultation ---
Date of Consultation August 15, 2019 Assessment & Plan (1) Chronic anticoagulation: - chronically on warfarin for anticoagulation 2/2 artificial heart valve placement - warfarin restarted yesterday per home regimen. - 2 mg S, T, TH, F, S - 3 mg M, W - INR therapeutic at 2.6 this AM - PT 25.2 - will continue to follow and medically manage. INR Q2D (2) Depression: - management per Psychiatry (3) Non-cardiac chest pain: - started 20 mg BID PO famotidine given patient's expression of GERD like symptoms during interview yesterday Supervising Physician Co-Signing Physician Notes Attending attestation I saw the patient confirmed archer portions of the history and physical examination. Agree with the impression and plan as noted above. On examination, S1/S2 present with click and blowing murmur. AVR with chronic anticoagulation -Coumadin as noted; INR in 2 to 3 days. Continue home dose of MARIANN inhibitor Chronic chest pain/question GERD -increase famotidine to twice daily. Depression with suicidal ideation - management per psychiatric team History of Present Illness Attending Physician: aGbriella Story MD Allergies Allergy/AdvReac Type Severity Reaction Status Date / Time doxycycline Allergy Unknown HIVES Verified 08/13/19 20:15 Tetracyclines Allergy Unknown Hives Verified 08/13/19 20:15 measles, mumps, and rubella Allergy Unknown Verified 08/13/19 20:15 vaccine [From M-M-R II] sepideh Allergy Severe Uncoded 08/14/19 02:21 Home Medications Home Medications Medication Instructions Recorded Confirmed Type acetaminophen 1,000 mg PO QID PRN 08/13/19 08/13/19 History diphenhydramine HCl [Benadryl] 25 mg PO HS PRN 08/13/19 08/13/19 History duloxetine [Cymbalta] 120 mg PO DAILY 08/13/19 08/13/19 History fexofenadine-pseudoephedrine 1 tab PO QAM 08/13/19 08/13/19 History [Archana-D 24 Hour] gabapentin 600 mg PO TID 08/13/19 08/13/19 History lisinopril [Zestril] 10 mg PO DAILY 08/13/19 08/13/19 History quetiapine [Seroquel] 100 mg PO HS 08/13/19 08/13/19 History terbinafine HCl 1 applic TOPICAL DAILY 08/13/19 08/13/19 History warfarin 3 mg PO 2XWK 08/13/19 08/13/19 History warfarin [Coumadin] 2 mg PO USEASDIRECTD 08/13/19 08/13/19 History Patient History Medical History (Updated 08/14/19 @ 10:24 by Lawanda Burch MD) Ascending aorta dilatation Depression Pacemaker Family History Other No pertinent family history in first degree relatives Social History Preferred Language: Mongolian Communication Ability: Effective 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 Beliefs That Will Affect Care: None Feels Safe at Home: Yes Smoking Status: Never smoker Review of Systems Constitutional: Tired, denies dizziness Physical Exam Constitutional: cooperative; no acute distress and not ill appearing Neck: normal visual inspection Respiratory: normal respiratory effort and able to speak in complete sentences; no respiratory distress, no labored breathing, no retractions, no cough and no audible wheezes Auscultation: lungs clear to auscultation bilaterally; no crackles, no rales, no rhonchi and no wheezes Cardiovascular: Rate/Rhythm: regular rate (loud S2 from mechanical valve) and regular rhythm Heart Sounds: normal S1 and normal S2; no gallop, no murmur and no cardiac rub Results & Data Vital Signs (Past 12 Hours) Vital Signs Temp Pulse Resp BP 08/15/19 06:22 80 86/46 L 08/15/19 06:21 36.5 C 62 14 84/45 L 08/14/19 21:30 77 111/74 08/15/19 08/15/19 Range/Units 07:33 07:33 PT 25.2 H (9.0-12.0) Seconds INR 2.6 H (0.9-1.1) Fasting Glucose 83 (70-99) mg/dl Triglycerides 78 (0-150) mg/dl Cholesterol 177 (0-200) mg/dl LDL Cholesterol, Calc 117 mg/dl VLDL Cholesterol, Calc 16 mg/dl HDL Cholesterol 44 mg/dl Cholesterol/HDL Ratio 4 Resident Activity Tracking Resident Involvement: Resident Care Provided Care Provided: Adult Hospital Medicine (1) Depression Active/Remission status: currently active Depression Type: major depressive disorder Major depression episode severity: severe Major depression recurrence: recurrent Psychotic features: without psychotic features Qualified Code(s): F33.2 - Major depressive disorder, recurrent severe without psychotic features
[2019-08-15 08:24] LABS: Chol HDL Ratio 4; Cholesterol 177 mg/dl (0-200); HDL Cholesterol 44 mg/dl; LDL Cholesterol Calculated 117 mg/dl; Triglycerides 78 mg/dl (0-150); VLDL Cholesterol 16 mg/dl
[2019-08-15] MEDS: TERBINAFINE CR 30 GM TUBE EXT SCH (08:26)
[2019-08-15] MEDS ORDERED: lisinopriL 10 MG TAB PO SCH (09:00)
[2019-08-15] MEDS ORDERED: FAMOTIDINE 20 MG TAB PO SCH (09:00)
--- NOTE | 2019-08-15 09:50 | Psychiatric Progress Note ---
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 He has a PA locally but no therapist, and is interested in case management and therapist locally. He would like to try a different antidepressant as he's lost yrn in duloxetine, and agreed to a trial of venlafaxine. Inpatient treatment is medically necessary due to the risk for suicide if discharged. (1) Depression: 08/14 -continue voluntary inpatient treatment for worsening mood and estrella icidal ideation with multiple plans. Every 15 minute checks for safety. -Encourage group participation, work on healthy coping skills and discharge safety plan. -Coordinate with outpatient clinicians (including psychiatrist in his home town whom he still sees); family meeting with supports. -Discussed several options, including titrating quetiapine (which he declined due to side effects on higher doses in the past), switching quetiapine to another augmenting agent, or switching duloxetine to another antidepressant. Discussed options of SSRIs or SNRI's, and he ultimately agreed to a trial of venlafaxine XR after review of risks, benefits, and side effects. Orders written for cross taper over the next 6 days; monitor and may need to slow taper if he experiences any side effects. -Will continue quetiapine 100mg HS. Order FLP and FG for monitoring on an atypical antipsychotic, as states he never had them. -Get records from Azucena Alonzo at [place]. [facility], and help him to follow up on [facility] referral (states he called [facility] multiple times, but never heard back). 08/15 - Continue scheduled taper from duloxetine to venlafaxine - Family meeting with mother scheduled for this afternoon - Continue to encourage engagement in group and recreational programming - 1:1 counseling as indicated, especially encouraged after revealing today that he feels suicidal thoughts are a means of gaining "control" in situations - Continue to coordinate aftercare (2) Pacemaker: 08/14 -was consult placed on admission, and Coumadin held due to INR 4.2. -INR 3.4 today, and Coumadin has been resumed. Appreciate recommendations. 08/15 - Appreciate hospitalist recommendations regarding Coumadin management - INR now within goal range of 2.0 - 3.0; today reading at 2.6 - Outpatient box sealing machine catcher updated and care was coordinated - recommending continuation of lisinopril Risk Factors Assessment Male: Yes : Yes Do You Have Access To A Gun?: No Health Problems: Yes Mental Health Diagnoses: Yes Substance Use Disorders: No Previous Attempt: Yes Previous Attempt; Highly Lethal: No Family History of Suicide: No Previous Psychiatric Hospitalization: Yes Hopelessness: Yes Smoker: No Protective Factors Assessment Temple Beliefs: No : No Responsible for Young Children: No Employed: No Supportive Family: Yes Good Rapport with Provider: Yes Interval History Identifying Information MARY LOU MEADE is a 24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 Chief Complaint "I am just really out of it. Who here is able to make changes to my meds?" Review of Systems Notes Constitutional: reports ongoing chronic pain Cardiovascular: denied Respiratory: denied Gastrointestinal: denied Neurological: denied Psychiatric: denies symptoms other than stated above Total of at least 10 systems reviewed, pertinent positives as above and in HPI. Sleep Information Total Hours of Sleep: 6.5 Meal Information Percent Meal Consumed - Breakfast: 100 Percent Meal Consumed - Lunch: 100 Percent Meal Consumed - Dinner: 75 Subjective Subjective Patient was seen & assessed and interval progress reviewed with treatment team. Staff reports the patient has been appearing anxious regarding his medication orders. Hospitalist service has been consulted for management of his anticoagulant. Patient is scheduled to have a family meeting with his mother this afternoon. Patient was seen today to assess progress since admission. He reports feeling tired and "really out of it." He requests to make changes to his medication orders, a conversation that takes the majority of our visit. Patient had specific questions regarding available timing for acetaminophen and diphenhydramine dosing. We also reviewed that lisinopril, held on admission, was recommended to be restarted by his box sealing machine catcher. Patient was happy to know that this was the case. Patient admits to continued suicidal ideation, with regular thought regarding plan, which he describes as "fantasizing." Patient states that although his symptoms have not improved yet for this admission, he feels as though he is "more in control, compared to the last time"referring to his last hospitalization. When asked what he means by this, he states "I feel like I was more prepared this time, I caught it sooner. I had not acted this time." As we continue to process some of his suicidal ideation, patient suddenly started laughing to himself. He spontaneously shares with this provider, "I have never talked with anyone about this, but I think I know what it is." He continues to tell this provider that he feels his suicidal ideation is a means to "control situations." He states that at a young age, in dealing with his cardiac concerns, he had always believed that "I would young." Patient shares a specific conversation with a family friend, which he states occurred after his heart valve replacement surgery. Patient states that the friend "asked me if the valve would last forever, and then quickly change the subject. It was like she said something wrong." Patient states he was around age of 9 at the time, and took the question to mean "that once the valve had failed I would be . It did not occur to me until I was older that the valve would just be replaced. But I think that mentality has stayed with me, that I am not in control of my ." Patient continue to process this idea with this provider, continuing to state that he "fantasizes about suicide" as a means to be in control of how he would . Patient was encouraged to utilize staff to continue to process this idea, especially as it is still fresh for him. Patient abruptly asked what time it was, and requested to end our session. It is unclear if this is due to a scheduled family meeting starting 20 minutes later, or due to feeling uncomfortable with the subject matter. Nonetheless, his request was granted. He denied other needs or concerns. Physical Exam Psychiatric Orientation: alert, oriented x 3 and cooperative (Though was somewhat rigid and demanding when discussing medication timing) Apperance: appropriately dressed, appropriately groomed and appeared stated age Eye Contact: + fair eye contact (Intermittent moments of direct eye contact) Motor Behavior: steady gait and station and no abnormal motor movements Speech: normal rate/rhythm/volume of speech (At times, he appears to be stumbling over his thoughts) Affect: + anxious affect and mood congruent with affect Mood: + depressed mood ("I feel really out of it") and + anxious mood Thought Process: goal directed thought process, clear/coherent thought process, + perseveration and thought association intact Thought Content: + preoccupation (With medication requests), reality based without delusions and + hopelessness Suicidal Thoughts: + reports suicidal thoughts (Stating only "I am too tired to think about it today") and + reports suicidal intent Reports ongoing suicidal ideation, stating there has been no improvement since admission Homicidal Thoughts: denies homicidal thoughts Hallucinations: no auditory hallucinations and no visual hallucinations Cognition: attention grossly intact and language grossly intact Insight: + fair insight Judgement: + fair judgement Vital Signs (Past 24 Hours) Last Vital Signs Temp 36.5 C 08/15/19 06:21 Pulse 80 08/15/19 06:22 Resp 14 08/15/19 06:21 BP 86/46 L 08/15/19 06:22 Pulse Ox 98 08/13/19 22:12 Results & Data Laboratory Results Laboratory Results - last 24 hr 08/15/19 08/15/19 07:33 07:33 PT 25.2 H INR 2.6 H Fasting Glucose 83 Triglycerides 78 Cholesterol 177 LDL Cholesterol, Calc 117 VLDL Cholesterol, Calc 16 HDL Cholesterol 44 Cholesterol/HDL Ratio 4 Current Inpatient Medications Current Inpatient Medications: Current Inpatient Medications Acetaminophen (Tylenol) 650 mg PO Q4H PRN PRN Reason: Pain Stop: 09/14/19 07:58 Al Hydrox/Mg Hydrox/Simethicone (Maalox) 30 ml PO Q4H PRN PRN Reason: GI Upset Stop: 09/12/19 20:56 Bismuth Subsalicylate (Kaopectate) 15 ml PO PRN PRN PRN Reason: Loose Stool Stop: 09/12/19 20:56 Diphenhydramine HCl (Benadryl Capsule) 25 mg PO HS PRN PRN Reason: Sleep Stop: 09/13/19 20:59 Duloxetine HCl (Cymbalta) 90 mg PO QAM [facility]; Taper Stop: 08/21/19 08:59 Last Admin: 08/15/19 08:19 Dose: 90 mg Documented by: Famotidine (Pepcid) 20 mg PO QAM [facility] Stop: 09/14/19 08:59 Last Admin: 08/15/19 08:40 Dose: Not Given Documented by: Fexofenadine HCl/Pseudoephedrine (Archana-D 12 Hr) 1 tab PO QAM [facility] Stop: 09/13/19 08:59 Last Admin: 08/15/19 08:18 Dose: 1 tab Documented by: Gabapentin (Neurontin) 600 mg PO TID [facility] Stop: 09/13/19 08:59 Last Admin: 08/15/19 08:19 Dose: 600 mg Documented by: Hydroxyzine HCl (Vistaril) 50 mg PO HSZ PRN PRN Reason: Insomnia Stop: 09/12/19 20:56 Hydroxyzine HCl (Vistaril) 25 mg PO Q4H PRN PRN Reason: Anxiety Stop: 09/12/19 20:56 Lisinopril (Zestril) 10 mg PO HS [facility] Stop: 09/13/19 21:59 Last Admin: 08/14/19 21:28 Dose: 10 mg Documented by: Magnesium Hydroxide (Milk Of Magnesia) 30 ml PO DAILY PRN PRN Reason: Constipation Stop: 09/12/19 20:56 Quetiapine Fumarate (Seroquel) [address] [facility] Stop: 09/13/19 20:59 Last Admin: 08/14/19 21:14 Dose: 100 mg Documented by: Sodium Chloride (Whiteside Nasal) 1 - 2 sprays NA PRN PRN PRN Reason: Nasal Dryness/Congestion Stop: 09/12/19 20:56 Terbinafine HCl (Lamisil At) 1 appln EXT DAILY [facility] Stop: 09/13/19 08:59 Last Admin: 08/15/19 08:26 Dose: Not Given Documented by: Venlafaxine HCl (Effexor Extended Release) [facility] Taper Stop: 09/18/19 08:59 Last Admin: 08/15/19 08:19 Dose: 37.5 mg Documented by: Warfarin Sodium (Coumadin) 3 mg PO [id number] [facility] Stop: 09/13/19 15:59 Warfarin Sodium (Coumadin) 2 mg PO [id number] [facility] Stop: 09/13/19 15:59 Last Admin: 08/14/19 16:00 Dose: 2 mg Documented by: Mental Health & Subst Abuse Tx Therapist Name of Therapist: 2 @ home near [facility] Relief Driller Name of Relief Driller: Denies/None Post Discharge Appointments Primary Care Physician Name Of Family Doctor: [facility] (1) Depression Active/Remission status: currently active Depression Type: major depressive disorder Major depression episode severity: severe Major depression recurrence: recurrent Psychotic features: without psychotic features Qualified Code(s): F33.2 - Major depressive disorder, recurrent severe without psychotic features
[2019-08-15] MEDS: WARFARIN SOD 2 MG TAB PO SCH (15:30)
[2019-08-15] MEDS: QUETIAPINE FUMARATE 200 MG TAB PO SCH (22:26)
[2019-08-15] MEDS: FAMOTIDINE 20 MG TAB PO SCH (22:26)
[2019-08-15] MEDS: lisinopriL 10 MG TAB PO SCH (22:27)
--- NOTE | 2019-08-16 07:08 | Hospitalist Consultation ---
Date of Consultation August 16, 2019 Assessment & Plan (1) Chronic anticoagulation: - chronically on warfarin for anticoagulation 2/2 artificial heart valve placement - warfarin restarted yesterday per home regimen. - 2 mg S, T, TH, F, S - 3 mg M, W - INR therapeutic at 2.6 this AM - PT 25.2 - will continue to follow and medically manage. INR Q2D (2) Depression: - management per Psychiatry (3) Non-cardiac chest pain: - started 20 mg BID PO famotidine given patient's expression of GERD like symptoms during interview yesterday History of Present Illness Attending Physician: Gabriella Story MD Allergies Allergy/AdvReac Type Severity Reaction Status Date / Time doxycycline Allergy Unknown HIVES Verified 08/13/19 20:15 Tetracyclines Allergy Unknown Hives Verified 08/13/19 20:15 measles, mumps, and rubella Allergy Unknown Verified 08/13/19 20:15 vaccine [From M-M-R II] sepideh Allergy Severe Uncoded 08/14/19 02:21 Home Medications Home Medications Medication Instructions Recorded Confirmed Type acetaminophen 1,000 mg PO QID PRN 08/13/19 08/13/19 History diphenhydramine HCl [Benadryl] 25 mg PO HS PRN 08/13/19 08/13/19 History duloxetine [Cymbalta] 120 mg PO DAILY 08/13/19 08/13/19 History fexofenadine-pseudoephedrine 1 tab PO QAM 08/13/19 08/13/19 History [Archana-D 24 Hour] gabapentin 600 mg PO TID 08/13/19 08/13/19 History lisinopril [Zestril] 10 mg PO DAILY 08/13/19 08/13/19 History quetiapine [Seroquel] 100 mg PO HS 08/13/19 08/13/19 History terbinafine HCl 1 applic TOPICAL DAILY 08/13/19 08/13/19 History warfarin 3 mg PO 2XWK 08/13/19 08/13/19 History warfarin [Coumadin] 2 mg PO USEASDIRECTD 08/13/19 08/13/19 History Patient History Medical History (Updated 08/14/19 @ 10:24 by Lawanda Burch MD) Ascending aorta dilatation Depression Pacemaker Family History Other No pertinent family history in first degree relatives Social History Preferred Language: Tajik Communication Ability: Effective Still Operator Whiskey Required: No Beliefs That Will Affect Care: None Feels Safe at Home: Yes Smoking Status: Never smoker Results & Data Vital Signs (Past 12 Hours) Vital Signs Temp Pulse Pulse Resp BP BP 08/16/19 06:36 86 101/64 08/16/19 06:35 36.5 C 80 18 95/61 L 08/15/19 22:23 75 126/85 (1) Depression Active/Remission status: currently active Depression Type: major depressive disorder Major depression episode severity: severe Major depression recurrence: recurrent Psychotic features: without psychotic features Qualified Code(s): F33.2 - Major depressive disorder, recurrent severe without psychotic features
[2019-08-16] MEDS: ACETAMINOPHEN 325 MG TAB PO PRN (07:46)
[2019-08-16] MEDS: DULOXETINE HCL 30 MG CAP PO SCH (08:49)
[2019-08-16] MEDS: VENLAFAXINE HCL XR 37.5 MG CAPXR PO SCH (08:49)
[2019-08-16] MEDS: GABAPENTIN 600 MG TAB PO SCH ×3 (08:49→17:21)
[2019-08-16] MEDS: FAMOTIDINE 20 MG TAB PO SCH ×2 (08:49→22:14)
[2019-08-16] MEDS: FEXOFENADINE 60MG/PSEUDOEPHEDRINE 120MG TAB PO SCH (08:50)
[2019-08-16] MEDS: TERBINAFINE CR 30 GM TUBE EXT SCH (08:54)
--- NOTE | 2019-08-16 12:21 | Psychiatric Progress Note ---
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 Inpatient treatment is medically necessary due to the risk for suicide if discharged. (1) Depression: 08/14 -continue voluntary inpatient treatment for worsening mood and suicidal ideation with multiple plans. Every 15 minute checks for safety. -Encourage group participation, work on healthy coping skills and discharge safety plan. -Coordinate with outpatient clinicians (including psychiatrist in his home town whom he still sees); family meeting with supports. -Discussed several options, including titrating quetiapine (which he declined due to side effects on higher doses in the past), switching quetiapine to another augmenting agent, or switching duloxetine to another antidepressant. Discussed options of SSRIs or SNRI's, and he ultimately agreed to a trial of venlafaxine XR after review of risks, benefits, and side effects. Orders written for cross taper over the next 6 days; monitor and may need to slow taper if he experiences any side effects. -Will continue quetiapine 100mg HS. Order FLP and FG for monitoring on an atypical antipsychotic, as states he never had them. -Get records from Azucena Alonzo at [place]. Refer for therapy in [facility], and help him to follow up on [facility] referral (states he called [facility] multiple times, but never heard back). 08/15 - Continue scheduled taper from duloxetine to venlafaxine - Family meeting with mother scheduled for this afternoon - Continue to encourage engagement in group and recreational programming - 1:1 counseling as indicated, especially encouraged after revealing today that he feels suicidal thoughts are a means of gaining "control" in situations - Continue to coordinate aftercare (2) Pacemaker: 08/14 -was consult placed on admission, and Coumadin held due to INR 4.2. -INR 3.4 today, and Coumadin has been resumed. Appreciate recommendations. 08/15 - Appreciate hospitalist recommendations regarding Coumadin management - INR now within goal range of 2.0 - 3.0; today reading at 2.6 - Outpatient conventions reservationist updated and care was coordinated - recommending continuation of lisinopril Risk Factors Assessment Male: Yes : Yes Do You Have Access To A Gun?: No Health Problems: Yes Mental Health Diagnoses: Yes Substance Use Disorders: No Previous Attempt: Yes Previous Attempt; Highly Lethal: No Family History of Suicide: No Previous Psychiatric Hospitalization: Yes Hopelessness: Yes Smoker: No Protective Factors Assessment Sabianism Beliefs: No : No Responsible for Young Children: No Employed: No Supportive Family: Yes Good Rapport with Provider: Yes Interval History Identifying Information MARY LOU MEADE is a 24-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 Chief Complaint "I'm still pretty sure I'd act on thoughts I was having". Review of Systems Sleep Information Total Hours of Sleep: 6.5 Meal Information Percent Meal Consumed - Breakfast: 4 Percent Meal Consumed - Lunch: 75 Percent Meal Consumed - Dinner: 100 Subjective Subjective Patient was seen & assessed and interval progress reviewed with nursing and social work. Tolerating cross taper from Cymbalta to Effexor XR. Continues with sense of aforeshortened future and need to control his exit from the world rather than cardiac status determining it. He discussed stay here vs [place]. Told his parents not to visit this weekend. PT/INR returning to baseline, he is on every other day draws. Physical Exam Psychiatric Orientation: alert Apperance: appropriately dressed and appropriately groomed Eye Contact: + fair eye contact Motor Behavior: steady gait and station Speech: normal rate/rhythm/volume of speech Affect: + depressed affect (but does brighten spontaneously) Mood: + depressed mood Thought Process: goal directed thought process Thought Content: + preoccupation ongoing SI with plan to use the exit bag, no intent to self-harm on unit Homicidal Thoughts: denies homicidal thoughts Hallucinations: no auditory hallucinations and no visual hallucinations Cognition: recent memory grossly intact, attention grossly intact and language grossly intact Estimated Intelligence: consistent with education level Insight: + limited insight Judgement: + limited judgement Vital Signs (Past 24 Hours) Last Vital Signs Temp 36.5 C 08/16/19 06:35 Pulse 86 08/16/19 06:36 Resp 18 08/16/19 06:35 BP 101/64 08/16/19 06:36 Pulse Ox 98 08/13/19 22:12 Results & Data Current Inpatient Medications Current Inpatient Medications: Current Inpatient Medications Acetaminophen (Tylenol) 650 mg PO Q4H PRN PRN Reason: Pain Stop: 09/14/19 07:58 Last Admin: 08/16/19 07:46 Dose: 650 mg Documented by: Al Hydrox/Mg Hydrox/Simethicone (Maalox) 30 ml PO Q4H PRN PRN Reason: GI Upset Stop: 09/12/19 20:56 Bismuth Subsalicylate (Kaopectate) 15 ml PO PRN PRN PRN Reason: Loose Stool Stop: 09/12/19 20:56 Diphenhydramine HCl (Benadryl Capsule) 25 mg PO BID PRN PRN Reason: Sleep Stop: 09/12/19 21:15 Last Admin: 08/16/19 08:50 Dose: 25 mg Documented by: Duloxetine HCl (Cymbalta) 90 mg PO QAM [facility]; Taper Stop: 08/21/19 08:59 Last Admin: 08/16/19 08:49 Dose: 90 mg Documented by: Famotidine (Pepcid) 20 mg PO BID [facility] Stop: 09/14/19 20:59 Last Admin: 08/16/19 08:49 Dose: 20 mg Documented by: Fexofenadine HCl/Pseudoephedrine (Archana-D 12 Hr) [facility] Stop: 09/13/19 08:59 Last Admin: 08/16/19 08:50 Dose: 1 tab Documented by: Gabapentin (Neurontin) 600 mg PO TID [facility] Stop: 09/13/19 08:59 Last Admin: 08/16/19 08:49 Dose: 600 mg Documented by: Hydroxyzine HCl (Vistaril) 50 mg PO HSZ PRN PRN Reason: Insomnia Stop: 09/12/19 20:56 Hydroxyzine HCl (Vistaril) 25 mg PO Q4H PRN PRN Reason: Anxiety Stop: 09/12/19 20:56 Last Admin: 08/15/19 10:43 Dose: 25 mg Documented by: Lisinopril (Zestril) 10 mg PO HS [facility] Stop: 09/13/19 21:59 Last Admin: 08/15/19 22:27 Dose: 10 mg Documented by: Magnesium Hydroxide (Milk Of Magnesia) 30 ml PO DAILY PRN PRN Reason: Constipation Stop: 09/12/19 20:56 Quetiapine Fumarate (Seroquel) 100 mg PO HS [facility] Stop: 09/13/19 20:59 Last Admin: 08/15/19 22:26 Dose: 100 mg Documented by: Sodium Chloride ([place] Nasal) 1 - 2 sprays NA PRN PRN PRN Reason: Nasal Dryness/Congestion Stop: 09/12/19 20:56 Terbinafine HCl (Lamisil At) 1 appln EXT DAILY [facility]ANK Stop: 09/13/19 08:59 Last Admin: 08/16/19 08:54 Dose: Not Given Documented by: Venlafaxine HCl (Effexor Extended Release) 37.5 mg PO QAM [facility]; Taper Stop: 09/18/19 08:59 Last Admin: 08/16/19 08:49 Dose: 37.5 mg Documented by: Warfarin Sodium (Coumadin) 3 mg PO MoWe@1600 FRANK Stop: 09/13/19 15:59 Warfarin Sodium (Coumadin) 2 mg PO SuTuThFrSa@1600 FRANK Stop: 09/13/19 15:59 Last Admin: 08/15/19 15:30 Dose: 2 mg Documented by: Mental Health & Subst Abuse Tx Psychiatrist Name of Psychiatrist: Tavares Ramirez - Tamiko Alonzo Psychiatrist's Psychiatric Appointment Comment: [address] [facility], [place] [address] Therapist Name of Therapist: [facility] - Kaela Swift LCSW Therapist's Date of Therapist Appointment: 08/20/19 Time of Therapist Appointment: 11:30 AM Therapy Appointment Comment: [address], [address], [facility] [address] Contractor [employer] Name of Contractor [employer]: [employer] Phone Number for Contractor [employer]: [phone] Case Management Appointment Comment: [address] [facility] Post Discharge Appointments Primary Care Physician Name Of Family Doctor: [facility] Primary Care Time of Appointment with PCP: Please follow up as needed Provider Appointment Comment: [facility] [place] [place] [address] Specialist Name of Specialist: It Applications Analyst - Dr. Rahat Huerta Contact Information Discharge Discharge [address]: [address] [place] [address], [address] [place] [address] (1) Depression Depression Type: major depressive disorder Major depression recurrence: recurrent Active/Remission status: currently active Major depression episode severity: severe Psychotic features: without psychotic features Qualified Code(s): F33.2 - Major depressive disorder, recurrent severe without psychotic features
[2019-08-16] MEDS: WARFARIN SOD 2 MG TAB PO SCH (15:54)
[2019-08-16] MEDS: lisinopriL 10 MG TAB PO SCH (22:15)
[2019-08-16] MEDS: QUETIAPINE FUMARATE 200 MG TAB PO SCH (22:15)
[2019-08-17] MEDS: FEXOFENADINE 60MG/PSEUDOEPHEDRINE 120MG TAB PO SCH (08:33)
[2019-08-17] MEDS: DULOXETINE HCL 30 MG CAP PO SCH (08:34)
[2019-08-17] MEDS: VENLAFAXINE HCL XR 37.5 MG CAPXR PO SCH (08:34)
[2019-08-17] MEDS: TERBINAFINE CR 30 GM TUBE EXT SCH (08:34)
[2019-08-17] MEDS: GABAPENTIN 600 MG TAB PO SCH ×3 (08:35→17:28)
[2019-08-17] MEDS: FAMOTIDINE 20 MG TAB PO SCH ×2 (08:35→21:17)
[2019-08-17 09:30] LABS: INR 2.4 (0.9-1.1); Prothrombin Time 23.2 Seconds (9.0-12.0)
--- NOTE | 2019-08-17 11:20 | Hospitalist Consultation ---
Date of Consultation August 17, 2019 Assessment & Plan (1) Chronic anticoagulation: - chronically on warfarin for anticoagulation 2/2 artificial heart valve placement - warfarin as per home regimen below. - 2 mg S, T, TH, F, S - 3 mg M, W - INR therapeutic at 2.3. INR Q2D - continue management going forward - will sign off at this point. please feel free to contact if additional concerns arise - continuing lisinopril 10mg per food service agent's recommendation (2) Depression: - management per Psychiatry (3) Non-cardiac chest pain: - started 20 mg BID PO famotidine given patient's expression of GERD like symptoms - pt doesnt notice removal of pain but has been able to take less tylenol at night and has less chest discomfort at night with BID famotidine Supervising Physician Co-Signing Physician Notes I saw the patient with the resident physician and confirmed archer portions of the history and physical examination. Agree with the impression and plan as noted above. Continue current medications; Recommend INR in 1 week We will sign off but please feel free to call with any questions or concerns. History of Present Illness Attending Physician: Gabriella Story MD Allergies Allergy/AdvReac Type Severity Reaction Status Date / Time doxycycline Allergy Unknown HIVES Verified 08/13/19 20:15 Tetracyclines Allergy Unknown Hives Verified 08/13/19 20:15 measles, mumps, and rubella Allergy Unknown Verified 08/13/19 20:15 vaccine [From M-M-R II] sepideh Allergy Severe Uncoded 08/14/19 02:21 Home Medications Home Medications Medication Instructions Recorded Confirmed Type acetaminophen 1,000 mg PO QID PRN 08/13/19 08/13/19 History diphenhydramine HCl [Benadryl] 25 mg PO HS PRN 08/13/19 08/13/19 History duloxetine [Cymbalta] 120 mg PO DAILY 08/13/19 08/13/19 History fexofenadine-pseudoephedrine 1 tab PO QAM 08/13/19 08/13/19 History [Archana-D 24 Hour] gabapentin 600 mg PO TID 08/13/19 08/13/19 History lisinopril [Zestril] 10 mg PO DAILY 08/13/19 08/13/19 History quetiapine [Seroquel] 100 mg PO HS 08/13/19 08/13/19 History terbinafine HCl 1 applic TOPICAL DAILY 08/13/19 08/13/19 History warfarin 3 mg PO 2XWK 08/13/19 08/13/19 History warfarin [Coumadin] 2 mg PO USEASDIRECTD 08/13/19 08/13/19 History Patient History Medical History (Updated 08/14/19 @ 10:24 by Lawanda Burch MD) Ascending aorta dilatation Depression Pacemaker Family History Other No pertinent family history in first degree relatives Social History Preferred Language: Albanian Communication Ability: Effective Belt Back Operator Required: No Beliefs That Will Affect Care: None Feels Safe at Home: Yes Smoking Status: Never smoker Review of Systems Constitutional: no fever, no chills, no body aches and no fatigue Respiratory: no cough and no dyspnea Cardiovascular: + chest pain (Decreasing amounts of noncardiac chest pain); no dyspnea and no edema Gastrointestinal: no abdominal pain, no nausea, no vomiting, no constipation and no diarrhea/loose stools Physical Exam Constitutional: cooperative; no acute distress and not ill appearing Respiratory: normal respiratory effort; no respiratory distress, no labored breathing and does not use accessory muscles Results & Data Vital Signs (Past 12 Hours) Vital Signs Temp Pulse Resp BP 08/17/19 06:42 81 94/60 L 08/17/19 06:41 36.3 C L 68 18 106/70 08/17/19 Range/Units 09:01 PT 23.2 H (9.0-12.0) Seconds INR 2.4 H (0.9-1.1) Resident Activity Tracking Resident Involvement: Resident Care Provided Care Provided: Adult Hospital Medicine (1) Depression Active/Remission status: currently active Depression Type: major depressive disorder Major depression episode severity: severe Major depression recurrence: recurrent Psychotic features: without psychotic features Qualified Code(s): F33.2 - Major depressive disorder, recurrent severe without psychotic features
--- NOTE | 2019-08-17 13:01 | Psychiatric Progress Note ---
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 Inpatient treatment is medically necessary due to the risk for suicide if discharged. (1) Depression: 08/14 -continue voluntary inpatient treatment for worsening mood and suicidal ideation with multiple plans. Every 15 minute checks for safety. -Encourage group participation, work on healthy coping skills and discharge safety plan. -Coordinate with outpatient clinicians (including psychiatrist in his home town whom he still sees); family meeting with supports. -Discussed several options, including titrating quetiapine (which he declined due to side effects on higher doses in the past), switching quetiapine to another augmenting agent, or switching duloxetine to another antidepressant. Discussed options of SSRIs or SNRI's, and he ultimately agreed to a trial of venlafaxine XR after review of risks, benefits, and side effects. Orders written for cross taper over the next 6 days; monitor and may need to slow taper if he experiences any side effects. -Will continue quetiapine 100mg HS. Order FLP and FG for monitoring on an atypical antipsychotic, as states he never had them. -Get records from Azucena Alonzo at [place]. Refer for therapy in [facility], and help him to follow up on [facility] referral (states he called [facility] multiple times, but never heard back). 08/15 - Continue scheduled taper from duloxetine to venlafaxine - Family meeting with mother scheduled for this afternoon - Continue to encourage engagement in group and recreational programming - 1:1 counseling as indicated, especially encouraged after revealing today that he feels suicidal thoughts are a means of gaining "control" in situations - Continue to coordinate aftercare 08/17 --tolerating cross taper to Effexor XR. Improved today vs 08/16 (2) Pacemaker: 08/14 -was consult placed on admission, and Coumadin held due to INR 4.2. -INR 3.4 today, and Coumadin has been resumed. Appreciate recommendations. 08/15 - Appreciate hospitalist recommendations regarding Coumadin management - INR now within goal range of 2.0 - 3.0; today reading at 2.6 - Outpatient district court judge updated and care was coordinated - recommending continuation of lisinopril Risk Factors Assessment Male: Yes : Yes Do You Have Access To A Gun?: No Health Problems: Yes Mental Health Diagnoses: Yes Substance Use Disorders: No Previous Attempt: Yes Previous Attempt; Highly Lethal: No Family History of Suicide: No Previous Psychiatric Hospitalization: Yes Hopelessness: Yes Smoker: No Protective Factors Assessment Uatsdin Beliefs: No : No Responsible for Young Children: No Employed: No Supportive Family: Yes Good Rapport with Provider: Yes Interval History Identifying Information MARY LOU MEADE is a 24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 Chief Complaint "I actually feel pretty productive". Review of Systems Sleep Information Total Hours of Sleep: 7 Meal Information Percent Meal Consumed - Breakfast: 100 Percent Meal Consumed - Lunch: 100 Percent Meal Consumed - Dinner: 50 Subjective Subjective Patient was seen & assessed and interval progress reviewed with nursing and social work. 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 Today he mentions that writing with a regular pen or pencil seems to cause some degree of neuropathic pain response along his surgical scar. He is aware that he could request testing accommodations at [facility] but also has some mixed feelings about it. PT/INR ordered for today is usual range. Physical Exam Mental Examination The patient presented as alert and cooperative. The patient was casually dressed and groomed. Eye contact was fair. No psychomotor restlessness or agitation was noted. Speech was normal in rate, rhythm, and volume. Affect was mood congruent. The patients mood appeared euthymic. Thought processes were clear, coherent and goal directed without evidence of loose associations or flight of ideas. Thought content/perception was reality based without delusions. The patient denied suicidal and homicidal ideation. The patient denied hallucinations and did not appear to be responding to internal stimuli. Cognition was grossly intact with orientation to person, place and time. Fund of Knowledge/Intelligence were consistent with level of education. Insight and Judgement are improving. Vital Signs (Past 24 Hours) Last Vital Signs Temp 36.3 C L 08/17/19 06:41 Pulse 81 08/17/19 06:42 Resp 18 08/17/19 06:41 BP 94/60 L 08/17/19 06:42 Pulse Ox 98 08/13/19 22:12 Results & Data Laboratory Results Laboratory Results - last 24 hr 08/17/19 09:01 PT 23.2 H INR 2.4 H Current Inpatient Medications Current Inpatient Medications: Current Inpatient Medications Acetaminophen (Tylenol) 650 mg PO Q4H PRN PRN Reason: Pain Stop: 09/14/19 07:58 Last Admin: 08/16/19 07:46 Dose: 650 mg Documented by: Al Hydrox/Mg Hydrox/Simethicone (Maalox) 30 ml PO Q4H PRN PRN Reason: GI Upset Stop: 09/12/19 20:56 Bismuth Subsalicylate (Kaopectate) 15 ml PO PRN PRN PRN Reason: Loose Stool Stop: 09/12/19 20:56 Diphenhydramine HCl (Benadryl Capsule) 25 mg PO BID PRN PRN Reason: Sleep Stop: 09/12/19 21:15 Last Admin: 08/16/19 08:50 Dose: 25 mg Documented by: Duloxetine HCl (Cymbalta) 60 mg PO QAM [facility]; Taper Stop: 08/21/19 08:59 Last Admin: 08/17/19 08:34 Dose: 60 mg Documented by: Famotidine (Pepcid) 20 mg PO BID [facility]ANK Stop: 09/14/19 20:59 Last Admin: 08/17/19 08:35 Dose: 20 mg Documented by: Fexofenadine HCl/Pseudoephedrine (Archana-D 12 Hr) 1 tab PO QAM [facility] Stop: 09/13/19 08:59 Last Admin: 08/17/19 08:33 Dose: 1 tab Documented by: Gabapentin (Neurontin) 600 mg PO TIDM [facility] Stop: 09/15/19 17:44 Last Admin: 08/17/19 12:32 Dose: 600 mg Documented by: Hydroxyzine HCl (Vistaril) 50 mg PO HSZ PRN PRN Reason: Insomnia Stop: 09/12/19 20:56 Hydroxyzine HCl (Vistaril) 25 mg PO Q4H PRN PRN Reason: Anxiety Stop: 09/12/19 20:56 Last Admin: 08/15/19 10:43 Dose: 25 mg Documented by: Lisinopril (Zestril) 10 mg PO HS [facility] Stop: 09/13/19 21:59 Last Admin: 08/16/19 22:15 Dose: 10 mg Documented by: Magnesium Hydroxide (Milk Of Magnesia) 30 ml PO DAILY PRN PRN Reason: Constipation Stop: 09/12/19 20:56 Quetiapine Fumarate (Seroquel) 100 mg PO HS [facility] Stop: 09/13/19 20:59 Last Admin: 08/16/19 22:15 Dose: 100 mg Documented by: Sodium Chloride ([place] Nasal) 1 - 2 sprays NA PRN PRN PRN Reason: Nasal Dryness/Congestion Stop: 09/12/19 20:56 Terbinafine HCl (Lamisil At) 1 appln EXT DAILY [facility] Stop: 09/13/19 08:59 Last Admin: 08/17/19 08:34 Dose: Not Given Documented by: Venlafaxine HCl (Effexor Extended Release) 75 mg PO QAM [facility]; Taper Stop: 09/18/19 08:59 Last Admin: 08/17/19 08:34 Dose: 75 mg Documented by: Warfarin Sodium (Coumadin) 3 mg PO MoWe@1600 FRANK Stop: 09/13/19 15:59 Warfarin Sodium (Coumadin) 2 mg PO SuTuThFrSa@1600 FRANK Stop: 09/13/19 15:59 Last Admin: 08/16/19 15:54 Dose: 2 mg Documented by: Mental Health & Subst Abuse Tx Psychiatrist Name of Psychiatrist: Tavares Ramirez - Tamiko Alonzo Psychiatrist's Psychiatric Appointment Comment: [phone] [facility] [place] [address] Therapist Name of Therapist: [facility] - Kaela Swift LCSW Therapist's Date of Therapist Appointment: 08/20/19 Time of Therapist Appointment: 11:30 AM Therapy Appointment Comment: [address], [facility] [address], [place] [address] Comic Writer Name of Comic Writer: [employer] Phone Number for Comic Writer: [phone] [facility]ment [facility] Primary Care Physician Name Of Family Doctor: [facility] Time of Appointment with PCP: Please follow up as needed Provider Appointment Comment: [facility] [address] Specialist Name of Specialist: Truss Driver Helper - Dr. Rahat Huerta Contact Information Discharge Discharge Address: [address] [place] [address], [place] [address], [place], [place] [address] (1) Depression Depression Type: major depressive disorder Major depression recurrence: recurrent Active/Remission status: currently active Major depression episode severity: severe Psychotic features: without psychotic features Qualified Code(s): F33.2 - Major depressive disorder, recurrent severe without psychotic features
[2019-08-17] MEDS: WARFARIN SOD 2 MG TAB PO SCH (16:15)
[2019-08-17] MEDS: lisinopriL 10 MG TAB PO SCH (21:17)
[2019-08-17] MEDS: QUETIAPINE FUMARATE 200 MG TAB PO SCH (21:17)
[2019-08-18] MEDS: FEXOFENADINE 60MG/PSEUDOEPHEDRINE 120MG TAB PO SCH (08:43)
[2019-08-18] MEDS: DULOXETINE HCL 30 MG CAP PO SCH (08:44)
[2019-08-18] MEDS: VENLAFAXINE HCL XR 37.5 MG CAPXR PO SCH (08:44)
[2019-08-18] MEDS: GABAPENTIN 600 MG TAB PO SCH ×3 (08:44→18:05)
[2019-08-18] MEDS: FAMOTIDINE 20 MG TAB PO SCH ×2 (08:44→21:48)
[2019-08-18] MEDS: TERBINAFINE CR 30 GM TUBE EXT SCH (08:47)
--- NOTE | 2019-08-18 11:25 | Psychiatric Progress Note ---
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 Inpatient treatment is medically necessary due to the risk for suicide if discharged. (1) Depression: 08/14 -continue voluntary inpatient treatment for worsening mood and suicidal ideation with multiple plans. Every 15 minute checks for safety. -Encourage group participation, work on healthy coping skills and discharge safety plan. -Coordinate with outpatient clinicians (including psychiatrist in his home town whom he still sees); family meeting with supports. -Discussed several options, including titrating quetiapine (which he declined due to side effects on higher doses in the past), switching quetiapine to another augmenting agent, or switching duloxetine to another antidepressant. Discussed options of SSRIs or SNRI's, and he ultimately agreed to a trial of venlafaxine XR after review of risks, benefits, and side effects. Orders written for cross taper over the next 6 days; monitor and may need to slow taper if he experiences any side effects. -Will continue quetiapine 100mg HS. Order FLP and FG for monitoring on an atypical antipsychotic, as states he never had them. -Get records from Azucena Alonzo at [facility]. Refer for therapy in [facility], and help him to follow up on [facility] referral (states he called [facility] multiple times, but never heard back). 08/15 - Continue scheduled taper from duloxetine to venlafaxine - Family meeting with mother scheduled for this afternoon - Continue to encourage engagement in group and recreational programming - 1:1 counseling as indicated, especially encouraged after revealing today that he feels suicidal thoughts are a means of gaining "control" in situations - Continue to coordinate aftercare 08/17 --tolerating cross taper to Effexor XR. Improved today vs 08/16 08/18 last day of 75mg effexor increase to 150mg tomorrow alongside 60mg cymbalta and team to reassess, due to downswing in mood, and fleeting SI would like to observe additional time due to risk of premature discharge and resurgance of safety concerns and hopelessness patient agrees (2) Pacemaker: 08/14 -was consult placed on admission, and Coumadin held due to INR 4.2. -INR 3.4 today, and Coumadin has been resumed. Appreciate recommendations. 08/15 - Appreciate hospitalist recommendations regarding Coumadin management - INR now within goal range of 2.0 - 3.0; today reading at 2.6 - Outpatient numerical analysis group manager updated and care was coordinated - recommending continuation of lisinopril Risk Factors Assessment Male: Yes : Yes Do You Have Access To A Gun?: No Health Problems: Yes Mental Health Diagnoses: Yes Substance Use Disorders: No Previous Attempt: Yes Previous Attempt; Highly Lethal: No Family History of Suicide: No Previous Psychiatric Hospitalization: Yes Hopelessness: Yes Smoker: No Protective Factors Assessment Hoahaoism Beliefs: No : No Responsible for Young Children: No Employed: No Supportive Family: Yes Good Rapport with Provider: Yes Interval History Identifying Information MARY LOU MEADE is a 24-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 Chief Complaint "I was feeling better but not today due to tinnitus". Review of Systems Sleep Information Total Hours of Sleep: 6.5 Meal Information Percent Meal Consumed - Breakfast: 100 Percent Meal Consumed - Lunch: 80 Percent Meal Consumed - Dinner: 100 Subjective Subjective Patient was seen & assessed and interval progress reviewed with treatment team. The patient spends his time focussed on his worsening tinnitus yesterday and into today after playing the keyboard yesterday.Of note he was at the keyboard playing when provider greeted him. He notes it is a combination of ear pain and tinnitus and he has not tried the bvitamin recommended by prior ENT because c ardiologist told him it could effect his INR and he was not willing for more routine blood work than he already has to do and because of limited yrn it would help. Furthermore he is not willing to return to the ENT because of the tests they do to measure the TInnitus provoked the tinnitus, it has been years since he has been to see the ENT. He notes "I am back to where I was when I came" On further exploration he feels lower today because of the tinnitus and ear pain, but not suicidal and with the medication changes he finds it is easier to avoid engaging in suicidal fantasies. He states his mood yesterday was 8/10, would put it at at 5/10 having intermittant SI but fleeting and passive yesterday but not yet today, and not dwelling on it like he was prior to admission. He has limited overt ability to express coping skills although he references going to a partial program at [facility] in the past where he was taught some things. He states he is tolerating the effexor XR (day 2 of 75mg to go to 150mg tomorrow on 08/19) and cymbata 60mg and declines changes at this time. Tinnitus and ear pain are no worse or better on this med change "I think I am less anxious about it than I was in the past." Discussed his after care he is seen at [facility] has appt next Sun, and is aware of referral to see therapist this 08/20, Kaela Swift, discussed differences of neurofeedback and biofeedback the altter of which has evidence for tinnitus. He declines referral for biofeedback at this time, "I want to stay with the meds, I trust the doctor who started that change" Provider expressed reticence about his leaving the hospital today given the downturn in his mood from tinnitus and the recurrance of SI even if fleeting that cam with resurgance of the tinnitus/ear pain flare. He agrees to stay for further monitoring noting "My mom was worried too." He is sleeping but feels disrupted in AM by vitals and labs and has trouble returning to sleep and states he beleives he is feeling tired because of this. o/w ongoing chest wall scar pain, TMJ pain, and tinnitus and ear pain, denies other physical concerns or SE from medications that he is aware of Physical Exam Psychiatric Orientation: alert, oriented to person, oriented to time and cooperative Apperance: appropriately dressed Eye Contact: + fair eye contact Motor Behavior: steady gait and station and no abnormal motor movements Speech: normal rate/rhythm/volume of speech subuded blunted affect, not labile states his mood is "okay" and better than when he came but appears down Thought Process: goal directed thought process Thought Content: + preoccupation (with tinnitus and decline of therapies offered by prior ENT or referrals) negative lens on health concerns fleeting suidical thoughts but reports less ruminations on suicidal fantasies compared to time of admission Homicidal Thoughts: denies homicidal thoughts Hallucinations: no auditory hallucinations and no visual hallucinations Cognition: recent memory grossly intact Estimated Intelligence: average estimated intelligence Insight: + fair insight Judgement: + fair judgement Vital Signs (Past 24 Hours) Last Vital Signs Temp 36.3 C L 08/18/19 06:35 Pulse 87 08/18/19 06:36 Resp 18 08/18/19 06:35 BP 86/49 L 08/18/19 06:36 Pulse Ox 98 08/13/19 22:12 Results & Data Current Inpatient Medications Current Inpatient Medications: Current Inpatient Medications Acetaminophen (Tylenol) 650 mg PO Q4H PRN PRN Reason: Pain Stop: 09/14/19 07:58 Last Admin: 08/16/19 07:46 Dose: 650 mg Documented by: Al Hydrox/Mg Hydrox/Simethicone (Maalox) 30 ml PO Q4H PRN PRN Reason: GI Upset Stop: 09/12/19 20:56 Bismuth Subsalicylate (Kaopectate) 15 ml PO PRN PRN PRN Reason: Loose Stool Stop: 09/12/19 20:56 Diphenhydramine HCl (Benadryl Capsule) 25 mg PO BID PRN PRN Reason: Sleep Stop: 09/12/19 21:15 Last Admin: 08/16/19 08:50 Dose: 25 mg Documented by: Duloxetine HCl (Cymbalta) 60 mg PO QAM [facility]; Taper Stop: 08/21/19 08:59 Last Admin: 08/18/19 08:44 Dose: 60 mg Documented by: Famotidine (Pepcid) 20 mg PO BID [facility] Stop: 09/14/19 20:59 Last Admin: 08/18/19 08:44 Dose: 20 mg Documented by: Fexofenadine HCl/Pseudoephedrine (Archana-D 12 Hr) 1 tab PO QAM [facility] Stop: 09/13/19 08:59 Last Admin: 08/18/19 08:43 Dose: 1 tab Documented by: Gabapentin (Neurontin) 600 mg PO TIDM FRANK Stop: 09/15/19 17:44 Last Admin: 08/18/19 08:44 Dose: 600 mg Documented by: Hydroxyzine HCl (Vistaril) 50 mg PO HSZ PRN PRN Reason: Insomnia Stop: 09/12/19 20:56 Hydroxyzine HCl (Vistaril) 25 mg PO Q4H PRN PRN Reason: Anxiety Stop: 09/12/19 20:56 Last Admin: 08/15/19 10:43 Dose: 25 mg Documented by: Lisinopril (Zestril) 10 mg PO HS [facility] Stop: 09/13/19 21:59 Last Admin: 08/17/19 21:17 Dose: 10 mg Documented by: Magnesium Hydroxide (Milk Of Magnesia) 30 ml PO DAILY PRN PRN Reason: Constipation Stop: 09/12/19 20:56 Quetiapine Fumarate (Seroquel) 100 mg PO [facility] Stop: 09/13/19 20:59 Last Admin: 08/17/19 21:17 Dose: 100 mg Documented by: Sodium Chloride ([place] Nasal) 1 - 2 sprays NA PRN PRN PRN Reason: Nasal Dryness/Congestion Stop: 09/12/19 20:56 Terbinafine HCl (Lamisil At) 1 appln EXT DAILY [facility] Stop: 09/13/19 08:59 Last Admin: 08/18/19 08:47 Dose: 1 appln Documented by: Venlafaxine HCl (Effexor Extended Release) 75 mg PO QAM [facility]; Taper Stop: 09/18/19 08:59 Last Admin: 08/18/19 08:44 Dose: 75 mg Documented by: Warfarin Sodium (Coumadin) 3 mg PO MoWe@1600 FRANK Stop: 09/13/19 15:59 Warfarin Sodium (Coumadin) 2 mg PO SuTuThFrSa@1600 FRANK Stop: 09/13/19 15:59 Last Admin: 08/17/19 16:15 Dose: 2 mg Documented by: Mental Health & Subst Abuse Tx Psychiatrist Name of Psychiatrist: Tavares Ramirez - Tamiko Alonzo Psychiatrist's Psychiatric Appointment Comment: [address] [place] [address] Therapist Name of Therapist: [facility] - Kaela Swift LCSW Therapist's Date of Therapist Appointment: 08/20/19 Time of Therapist Appointment: 11:30 AM Therapy Appointment Comment: [address], [address], [place] [address] Report Checker Name of Report Checker: Student Care and Advocacy: Zack Herron Phone Number for Report Checker: [phone] Date of Appointment with Report Checker: 08/20/19 Time of Appointment with Report Checker: 2:00pm Case Management Appointment Comment: [address] [facility] Post Discharge Appointments Primary Care Physician Name Of Family Doctor: [facility] Primary Care Time of Appointment with PCP: Please follow up as needed Provider Appointment Comment: [facility] [address] Specialist Name of Specialist: [employer] Architect - Dr. Rahat Huerta Phone Number for Specialist: Date of Appointment with Specialist: 09/19/19 Time of Appointment with Specialist: 12:20pm Specialty Appointment Comment: [address] [address], [place] [address] Contact Information Discharge Discharge [address] [address] [place] [address], [address] [address] (1) Depression Depression Type: major depressive disorder Major depression recurrence: recurrent Active/Remission status: currently active Major depression episode severity: severe Psychotic features: without psychotic features Qualified Code(s): F33.2 - Major depressive disorder, recurrent severe without psychotic features
[2019-08-18] MEDS: WARFARIN SOD 3 MG TAB PO SCH (15:57)
[2019-08-18] MEDS: QUETIAPINE FUMARATE 200 MG TAB PO SCH (21:48)
[2019-08-18] MEDS: lisinopriL 10 MG TAB PO SCH (21:48)
[2019-08-19] MEDS: FEXOFENADINE 60MG/PSEUDOEPHEDRINE 120MG TAB PO SCH (08:06)
[2019-08-19] MEDS: VENLAFAXINE HCL XR 37.5 MG CAPXR PO SCH (08:06)
[2019-08-19] MEDS: DULOXETINE HCL 30 MG CAP PO SCH (08:06)
[2019-08-19] MEDS: TERBINAFINE CR 30 GM TUBE EXT SCH (08:07)
[2019-08-19] MEDS: GABAPENTIN 600 MG TAB PO SCH ×3 (08:08→17:15)
[2019-08-19] MEDS: FAMOTIDINE 20 MG TAB PO SCH ×2 (08:08→21:33)
[2019-08-19 08:14] LABS: INR 1.9 (0.9-1.1); Prothrombin Time 18.8 Seconds (9.0-12.0)
--- NOTE | 2019-08-19 09:31 | Psychiatric Progress Note ---
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 Inpatient treatment is medically necessary due to the risk for suicide if discharged prematurely. (1) Depression: 08/14 -continue voluntary inpatient treatment for worsening mood and suicid al ideation with multiple plans. Every 15 minute checks for safety. -Encourage group participation, work on healthy coping skills and discharge safety plan. -Coordinate with outpatient clinicians (including psychiatrist in his home town whom he still sees); family meeting with supports. -Discussed several options, including titrating quetiapine (which he declined due to side effects on higher doses in the past), switching quetiapine to another augmenting agent, or switching duloxetine to another antidepressant. Discussed options of SSRIs or SNRI's, and he ultimately agreed to a trial of venlafaxine XR after review of risks, benefits, and side effects. Orders written for cross taper over the next 6 days; monitor and may need to slow taper if he experiences any side effects. -Will continue quetiapine 100mg HS. Order FLP and FG for monitoring on an atypical antipsychotic, as states he never had them. -Get records from Azucena Alonzo at [place]. Refer for therapy in [facility], and help him to follow up on [facility] referral (states he called [facility] multiple times, but never heard back). 08/15 - Continue scheduled taper from duloxetine to venlafaxine - Family meeting with mother scheduled for this afternoon - Continue to encourage engagement in group and recreational programming - 1:1 counseling as indicated, especially encouraged after revealing today that he feels suicidal thoughts are a means of gaining "control" in situations - Continue to coordinate aftercare 08/17 --tolerating cross taper to Effexor XR. Improved today vs 08/16 08/18 last day of 75mg effexor increase to 150mg tomorrow alongside 60mg cymbalta and team to reassess, due to downswing in mood, and fleeting SI would like to observe additional time due to risk of premature discharge and resurgance of safety concerns and hopelessness patient agrees 08/19 - Pt to receive last dose of duloxetine 30mg tomorrow morning - current cross-taper schedule has him remaining on 150mg of venlafaxine - Pt reporting mild improvement from yesterday, but still not convinced of ability to contract for safety outside of hospital setting - agreeable to remain in treatment with likely discharge tomorrow - Pt has a therapy appointment and a meeting with [facility] tomorrow (2) Pacemaker: 08/14 -was consult placed on admission, and Coumadin held due to INR 4.2. -INR 3.4 today, and Coumadin has been resumed. Appreciate recommendations. 08/15 - Appreciate hospitalist recommendations regarding Coumadin management - INR now within goal range of 2.0 - 3.0; today reading at 2.6 - Outpatient snow removal/plowing updated and care was coordinated - recommending continuation of lisinopril 08/19 - Hospitalist service informed of INR - 1.9 this morning; recommend co ntinuing current Coumadin schedule - with consideration to adjust doses if his next reading is subtherapeutic - Appreciate recommendations Risk Factors Assessment Male: Yes : Yes Do You Have Access To A Gun?: No Health Problems: Yes Mental Health Diagnoses: Yes Substance Use Disorders: No Previous Attempt: Yes Previous Attempt; Highly Lethal: No Family History of Suicide: No Previous Psychiatric Hospitalization: Yes Hopelessness: Yes Smoker: No Protective Factors Assessment Protestant Beliefs: No : No Responsible for Young Children: No Employed: No Supportive Family: Yes Good Rapport with Provider: Yes Interval History Identifying Information MARY LOU MEADE is 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 Chief Complaint " Okay. I guess better today. I just always been in the habit of comforting myself with suicidal thoughts, but I am trying to stop that." Review of Systems Notes Constitutional: denied Cardiovascular: denied Respiratory: denied Gastrointestinal: denied Neurological: denied Psychiatric: denies symptoms other than stated above Total of at least 10 systems reviewed, pertinent positives as above and in HPI. Sleep Information Total Hours of Sleep: 6 Sleep Comments: pt on q-15 minute checks Meal Information Percent Meal Consumed - Breakfast: 75 Percent Meal Consumed - Lunch: 80 Percent Meal Consumed - Dinner: 100 Subjective Subjective Patient was seen & assessed and interval progress reviewed with nursing and social work. Staff reports the patient admitted to a rough evening last evening, stating to staff that he often finds himself thinking about . He had reported last evening feeling no better than admission, and was reportedly more irritable this morning. Patient was seen today to assess progress since admission. He informs this provider that he feels today is starting out "better" than yesterday. He admits to having a beneficial conversation with a counselor last evening regarding distraction techniques and coping skills to reduce his perseveration on suicidal thoughts. Patient states "I have always been in the habit of comforting myself with suicidal thoughts. It is almost uncomfortable to distract myself, it feels unsatisfactory sometimes." Patient states he and the counselor discussed topics the patient could use to distract his thoughts, but states "it always comes back to . We talked about thinking about my dog and how much I love to play with him, but my dog is also really old and contracted in any moment. So then I have to distract myself from that thought." Patient states that he had a constructive conversation about this, and is feeling more comfortable utilizing these techniques. We also reviewed specific activities that allow his mind a break from these thoughts, in particular playing piano seems to be helpful. Patient does admit that although is difficult for him to resist thinking of suicide, the barrier between thoughts and intent is "much stronger" than it was at the time of admission. Patient reports feeling comfortable utilizing his safety plan, but agrees that remaining in treatment with reconsideration of discharge tomorrow is in his best interest. Patient does state his preference would be for therapy appointment soon after discharge, and is hopeful to keep his currently scheduled appointments for tomorrow. Patient denies other needs or concerns at this time. Physical Exam Psychiatric Orientation: alert, oriented x 3 and cooperative (And pleasant) Apperance: appropriately dressed, appropriately groomed and appeared stated age Eye Contact: + fair eye contact (Prolonged staring at floor, mixed with moments of direct eye contact) Motor Behavior: steady gait and station and no abnormal motor movements Speech: normal rate/rhythm/volume of speech (Soft tone) Affect: + anxious affect, + blunted affect and mood congruent with affect Mood: + anxious mood Reports improvement in mood and anxiety from yesterday Thought Process: goal directed thought process, clear/coherent thought process and thought association intact Thought Content: + preoccupation (With suicidal ideation, though is practicing distraction techniques); no hopelessness Suicidal Thoughts: denies suicidal intent; + reports suicidal thoughts and + reports suicidal plan Patient continues to be preoccupied with suicidal ideation, though is practicing distraction techniques. Despite persistent SI, patient feels likelihood of him acting on these thoughts is significantly decreased since admission. Homicidal Thoughts: denies homicidal thoughts Hallucinations: no auditory hallucinations and no visual hallucinations Cognition: attention grossly intact and language grossly intact Insight: + fair insight Judgement: + fair judgement Vital Signs (Past 24 Hours) Last Vital Signs Temp 36.3 C L 08/18/19 06:35 Pulse 94 H 08/19/19 08:21 Resp 18 08/18/19 06:35 BP 109/74 08/19/19 08:21 Pulse Ox 98 08/13/19 22:12 Results & Data Laboratory Results Laboratory Results - last 24 hr 08/19/19 07:52 PT 18.8 H INR 1.9 H Current Inpatient Medications Current Inpatient Medications: Current Inpatient Medications Acetaminophen (Tylenol) 650 mg PO Q4H PRN PRN Reason: Pain Stop: 09/14/19 07:58 Last Admin: 08/16/19 07:46 Dose: 650 mg Documented by: Al Hydrox/Mg Hydrox/Simethicone (Maalox) 30 ml PO Q4H PRN PRN Reason: GI Upset Stop: 09/12/19 20:56 Bismuth Subsalicylate (Kaopectate) 15 ml PO PRN PRN PRN Reason: Loose Stool Stop: 09/12/19 20:56 Diphenhydramine HCl (Benadryl Capsule) 25 mg PO BID PRN PRN Reason: Sleep Stop: 09/12/19 21:15 Last Admin: 08/19/19 08:13 Dose: 25 mg Documented by: Duloxetine HCl (Cymbalta) 30 mg PO QAM [facility]; Taper Stop: 08/21/19 08:59 Last Admin: 08/19/19 08:06 Dose: 30 mg Documented by: Famotidine (Pepcid) 20 mg PO BID [facility]ANK Stop: 09/14/19 20:59 Last Admin: 08/19/19 08:08 Dose: 20 mg Documented by: Fexofenadine HCl/Pseudoephedrine (Archana-D 12 Hr) 1 tab PO QAM FRANK Stop: 09/13/19 08:59 Last Admin: 08/19/19 08:06 Dose: 1 tab Documented by: Gabapentin (Neurontin) 600 mg PO TIDM [facility] Stop: 09/15/19 17:44 Last Admin: 08/19/19 08:08 Dose: 600 mg Documented by: Hydroxyzine HCl (Vistaril) 50 mg PO HSZ PRN PRN Reason: Insomnia Stop: 09/12/19 20:56 Hydroxyzine HCl (Vistaril) 25 mg PO Q4H PRN PRN Reason: Anxiety Stop: 09/12/19 20:56 Last Admin: 08/15/19 10:43 Dose: 25 mg Documented by: Lisinopril (Zestril) 10 mg PO [facility] Stop: 09/13/19 21:59 Last Admin: 08/18/19 21:48 Dose: 10 mg Documented by: Magnesium Hydroxide (Milk Of Magnesia) 30 ml PO DAILY PRN PRN Reason: Constipation Stop: 09/12/19 20:56 Quetiapine Fumarate (Seroquel) 100 mg PO [facility] Stop: 09/13/19 20:59 Last Admin: 08/18/19 21:48 Dose: 100 mg Documented by: Sodium Chloride ([place] Nasal) 1 - 2 sprays NA PRN PRN PRN Reason: Nasal Dryness/Congestion Stop: 09/12/19 20:56 Terbinafine HCl (Lamisil At) 1 appln EXT DAILY [facility] Stop: 09/13/19 08:59 Last Admin: 08/19/19 08:07 Dose: 1 appln Documented by: Venlafaxine HCl (Effexor Extended Release) 150 mg PO [facility]; Taper Stop: 09/18/19 08:59 Last Admin: 08/19/19 08:06 Dose: 150 mg Documented by: Warfarin Sodium (Coumadin) 3 mg PO [id number]@1600 [facility] Stop: 09/13/19 15:59 Last Admin: 08/18/19 15:57 Dose: 3 mg Documented by: Warfarin Sodium (Coumadin) 2 mg PO [id number]@1600 [facility] Stop: 09/13/19 15:59 Last Admin: 08/17/19 16:15 Dose: 2 mg Documented by: Mental Health & Subst Abuse Tx Psychiatrist Name of Psychiatrist: Tavares Alonzo Psychiatrist's Date of Appointment with Psychiatrist: 08/27/19 Time of Appointment with Psychiatrist: 3:45 Psychiatric Appointment Comment: [address], [place] [address] Therapist Name of Therapist: [facility] - Kaela Swift LCSW Therapist's Date of Therapist Appointment: 08/20/19 Time of Therapist Appointment: 11:30 AM Therapy Appointment Comment: [address], [facility] [[email or web address] [address] [facility] [address] Sailor Name of Sailor: [facility]: Zack Herron Phone Number for Sailor: [phone] Date of Appointment with Sailor: 08/20/19 Time of Appointment with Sailor: 2:00pm Case Management Appointment [facility] [address] [facility] Primary Care Physician Name Of Family Doctor: [facility] Primary Care Time of Appointment with PCP: Please follow up as needed Provider Appointment Comment: [place] [address] Specialist Name of Specialist: [employer] - Dr. Rahat Huerta Phone Number for Specialist: Date of Appointment with Specialist: 09/19/19 Time of Appointment with Specialist: 12:20 pm Specialty Appointment Comment: [address] [address], [place] [address] Contact Information Discharge Discharge Address: [address] [place] [address], [address] [place] [address] (1) Depression Active/Remission status: currently active Depression Type: major depressive disorder Major depression episode severity: severe Major depression recurrence: recurrent Psychotic features: without psychotic features Qualified Code(s): F33.2 - Major depressive disorder, recurrent severe without psychotic features
[2019-08-19] MEDS: WARFARIN SOD 2 MG TAB PO SCH (16:24)
[2019-08-19] MEDS: lisinopriL 10 MG TAB PO SCH (21:33)
[2019-08-19] MEDS: QUETIAPINE FUMARATE 200 MG TAB PO SCH (21:33)
[2019-08-19] MEDS: ACETAMINOPHEN 325 MG TAB PO PRN (22:14)
[2019-08-20] MEDS: TERBINAFINE CR 30 GM TUBE EXT SCH (08:50)
[2019-08-20] MEDS: VENLAFAXINE HCL XR 37.5 MG CAPXR PO SCH (08:50)
[2019-08-20] MEDS: DULOXETINE HCL 30 MG CAP PO SCH (08:50)
[2019-08-20] MEDS: GABAPENTIN 600 MG TAB PO SCH (08:51)
[2019-08-20] MEDS: FAMOTIDINE 20 MG TAB PO SCH (08:51)
[2019-08-20] MEDS ORDERED: FEXOFENADINE HCL 180 MG TAB PO SCH (09:00)
--- NOTE | 2019-08-20 10:01 | Discharge Summary ---
Date of Service August 20, 2019 History of Present Illness Patient presented to the ER yesterday 08/13/2019 on referral from his outpatient physician case assistant, Azucena Alonzo, at [facility]. He endorsed worsening suicidal thoughts, stated he did not want to live, and had been researching ways to end his life that would be painless. He had been reading about "exit bags," which she described as putting a bag over his head and releasing nitrogen so that he would be unconscious within 2 breaths. He had also looked into getting an IV and allowing blood to drain out of him until he , and jumping out of his apartment window headfirst. He reported hopelessness and the feeling that everything he does is pointless. He reported chronic sternal pain status post cardiac surgery and chronic tinnitus. CBC notable for WBC 4.40 and RBC 4.65, INR 4.2 (3.4 this morning), CMP and TSH normal, UA and toxicology screens negative, troponin and CK-MB negative. 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 EKG showed ventricular placed rhythm with PVCs, QTC 533. A hospitalist consult was placed due to his cardiac disease and supratherapeutic INR. He signed in voluntarily, and was continued on his home medications: Gabapentin 600 mg 3 times daily and 100 mg at bedtime, duloxetine 120 mg daily, and quetiapine 100 mg at bedtime. On my assessment, he reports depression since around 14 years old, with treatment starting about a year ago. He never fully recovered, but SI got better. Depressive symptoms include difficulty falling and staying asleep, sadness, crying spells, restlessness, hopelessness, and difficulty functioning. Exacerbated by chronic pain, school, and tinnitus. Reports SI in the past (when hospitalized last year), and started have SI again a couple of weeks ago, at which point he started seeing PA at [facility] more often. He admits to research as above, looking for a painless way to kill himself. He states the only thing that's stopped him from ending his life is lack of access to the things he would need, noting he wants to use a nonviolent, painless method. He has looked at his medication and tried to figure out what he could overdose on, and reports thinking a lot about using nitrogen or some other gas that would replace oxygen to "knock me out, suffocate," as this would be painless. He denies that he has access to gas, but says "that would be the next step." Has had problems with anxiety, h/o ZAYRA, but reports currently depression is worse than anxiety. Reports excessive worry, difficulty managing worry, and sleep impairment. Denies h/o jose antonio, psychosis, and PTSD. Notes he "pays too close attention to symptoms in my body," for example his pain and tinnitus, but denies other OCD symptoms. States current medications were started at [facility] and initially seemed to help, but then symptoms worsened a couple of months ago, and duloxetine was increased, which initially seemed to help. Quetiapine was initially 50mg HS but when sleep worsened it was increased to 100mg HS (about a month ago). The only side effect he's noted is weight gain (10 lbs in a year, but BMI 20, is not concerned about current weight). Notes he has a "major presentation" next week which he is stressed about, as it is his [employer] project for his major. States he has been "functioning fine, but it's the downtime...feel like I'm wasting so much time, time goes by so slowly." He is frustrated and upset by his sense of unrest/unhappiness, and isn't sure where it is coming from. Notes he is only taking 2 classes "in case my pain flares up." Notes he did better when he also had a job as he had more structure. Physical Exam Psychiatric Orientation: alert, oriented x 3 and cooperative Apperance: appropriately dressed and appropriately groomed Eye Contact: good eye contact Motor Behavior: steady gait and station and no abnormal motor movements Speech: normal rate/rhythm/volume of speech (Soft tone) Affect: + anxious affect (Mildly, shaking leg up and down as if anxious/restless) and mood congruent with affect Mood: + depressed mood (Ongoing, but reportedly improved) and + anxious mood (Improved, mild anticipatory anxiety regarding discharge) Thought Process: goal directed thought process, clear/coherent thought process and thought association intact Thought Content: reality based without delusions; no hopelessness and no worthlessness Suicidal Thoughts: denies suicidal intent; + reports suicidal thoughts (Passive SI ongoing, but reduced in severity and frequency) Suicidal ideation has been chronic, those reportedly significantly reduced at this time. Patient admits to feeling it is "easier to distract myself from the thoughts." He verbalizes ability to contract for safety outside of the hospital setting, and has completed a safety plan which he states he feels comfortable utilizing. Homicidal Thoughts: denies homicidal thoughts Hallucinations: no auditory hallucinations and no visual hallucinations Cognition: attention grossly intact and language grossly intact Insight: + fair insight Judgement: good judgement Vital Signs (Past 24 Hours) Last Vital Signs Temp 36.3 C L 08/18/19 06:35 Pulse 94 H 08/19/19 08:21 Resp 18 08/18/19 06:35 BP 109/74 08/19/19 08:21 Pulse Ox 98 08/13/19 22:12 Principal Diagnosis - Major depressive disorder, recurrent, severe, without psychotic features Psychiatric Data 24-year-old male admitted voluntarily for inpatient psychiatric treatment on 08/13/2019, reporting worsening of depressive symptoms and suicidal ideation with multiple plans. It was reported that patient had researched ways to end his life, with the highest consideration being the use of nitrous oxide or to use an IV to drain the blood from his body until he . Patient had one prior psychiatric hospitalization, following a suicide attempt in 09/2017. He denied act of furtherance prior to this admission, and requested psychiatric treatment with desire for medication adjustments. Patient believed that his dose of duloxetine 120 mg daily was losing efficacy, and was agreeable with cross titration from duloxetine to venlafaxine. Over the course of the patient's admission, duloxetine had been tapered and discontinued. He was titrated to a dose of venlafaxine 150 mg daily, and was discharged with recommendation to continue that dosage. Patient has a significant history of medical issues resulting from a congenital heart defect. He is followed routinely by cardiology, and is on regular anticoagulation due to mechanical valve and pacemaker placement. Hospitalist consultation was requested during his admission to manage his Coumadin, as his INR on admission was 4.2. Dose of Coumadin was held for that day, and his prior schedule was restarted. Communication was had with patient's outpatient wrecking supervisor, who is made aware of hospitalist consultation and management. Over the course of his admission, patient attended group and recreational programming. He participated in individual counseling, in which he processed multiple stressors which contributed to his worsening mood. Patient was able to verbalize realization that his "fantasies of " and suicidal ideation may be related to a perceived lack of control regarding his physical health. This concept was processed, and patient was challenged with developing coping strategies that would allow him to distract himself from the suicidal thoughts. Over the course of his admission, he reported reduction in severity and frequency of suicidal ideation, and was eventually able to contract for safety outside of the hospital setting. Outpatient psychiatric appointments were scheduled to allow for timely follow-up after hospital discharge. He is requesting discharge, to allow him to finish the remainder of his semesters projects prior to returning home for winter. Based on review of patient's case and their current presentation, risk of harm to self or others is no longer perceived to be acute. Management of symptoms on an outpatient basis seems the most appropriate and least restrictive setting. Pt seems appropriate for discharge with recommendation for consistent follow-up with outpatient psychiatric prescriber and therapist. Pt verbalized understanding of discharge plan reviewed and is agreeable with plan to be discharged home today. Day of Discharge Assessment Patient's case was reviewed and discussed during treatment team. Staff reports the patient continued to process thoughts in the group setting and individually with counselors. He reports improvement in ability to distract himself from intermittent suicidal ideation. Patient does have a therapy appointment scheduled for this afternoon at 1130, which she has hopeful to attend. Anticipated discharge had been delayed previously, as patient had verbalized mild worsening of symptoms. He has since reported improvement, and is requesting discharge. Patient was seen today to assess readiness for discharge. He informed this provider that he is feeling "excited" and "ready". Patient states that he continued to work on coping strategies throughout the day yesterday, and is finding it "easier to distract myself from the thoughts." He informs this provider that he also feels returning home for break will also be beneficial for him. He is planning to work over the break, which will allow him some structure and daily purpose, which he feels will be helpful. Patient does state that his current schedule is accommodating, allowing him to work "as much or as little as I want." Patient states that he presently feels comfortable returning neck semester, as he will also have a lightened course load, allowing him opportunity to focus on his mental health, work, and his academics. Patient does state that he feels his recent depressive symptoms were related in some part to "feeling like the work I was doing was pointless, it was not meaningful." Patient states that this mentality has changed somewhat, but he also is optimistic that medications will allow him to more easily push through periods where these thoughts recur. Patient denies any significant concerns related to his medication adjustments. He was informed he is now only taking venlafaxine 150 mg daily, and duloxetine was discontinued after this morning's dose. Patient is to continue quetiapine 100 mg at bedtime. Patient reports feeling as though discharge today will be beneficial, as he thinks it will be helpful to meet right away with his therapist and [facility]. Patient denies current suicidal ideation, and denies consideration of plan or intent to act on any thoughts of self-harm. He is able to verbalize a safety pl an with this provider, and the written copy was reviewed by this provider prior to his discharge. Discharge medications were thoroughly reviewed, in order to reduce anxiety after leaving the hospital. Patient denied any specific questions related to medications recommended for continuation. Patient reports feeling comfortable with a discharge today, and plans to head straight to his therapy appointment after he leaves the hospital. He verbalizes understanding of discharge plan, and is agreeable with discharge as discussed. ROS: Constitutional: denied Cardiovascular: denied Respiratory: denied Gastrointestinal: denied Neurological: denied Psychiatric: denies symptoms other than stated above Total of at least 10 systems reviewed, pertinent positives as above and in HPI. Transition of Care Transition Of Care Record: was reviewed with the patient Advance Directives Advance Directives Information Provided: Yes Advance Directives: No Mental Health Advance Directive: No Advance Directives on File: No Living Will: No Power of Runner Out: No Advance Directives Reason:: Declines as Mental Health Visit. Risk Factors Assessment Presenting risk factors reviewed on discharge. Precipitating stressors mitigated by: admission for inpatient psychiatric observation and treatment, appropriate adjustments to medications to target symptoms, attendance of therapeutic treatment groups, development of healthy and effective coping strategies, involvement of outpatient supports, completion of a safety plan, confirmation of guns and weapons being secured, treatment of medical conditions and education on diagnoses. Pt has demonstrated improvement in condition with regard to improvement in mood, enhanced coping strategies to distract from SI, reduction in frequency and severity of SI, and ability to contract for safety outside of the hospital setting. At this time, patient is requesting discharge and is no longer considered to be at acute risk of harm to himself or others. Pt will be discharged with recommendation for ongoing outpatient psychiatric treatment. Male: Yes : Yes Do You Have Access To A Gun?: No Health Problems: Yes Mental Health Diagnoses: Yes Substance Use Disorders: No Previous Attempt: Yes Previous Attempt; Highly Lethal: No Family History of Suicide: No Previous Psychiatric Hospitalization: Yes Hopelessness: Yes Smoker: No Protective Factors Assessment Congregational Beliefs: No : No Responsible for Young Children: No Employed: No Supportive Family: Yes Good Rapport with Provider: Yes Tobacco Cessation at Discharge Tobacco Cessation Medication Prescribed at Discharge: Not Applicable/Non-Smoker Total Time Total Time Spent: Greater Than 30 Minutes Total Time Includes: Examination of the patient, Discharge Planning, Medication Reconciliation and Communication with other providers Discharge Data Consultations 08/13/19 21:03 ED Decision to Admit Stat 08/13/19 22:51 Consult Medical [Consult Internal Medicine] Routine Lab Results 08/13/19 08/13/19 08/13/19 16:49 16:49 16:49 WBC 4.46 L RBC 4.78 Hgb 15.3 Hct 43.4 MCV 90.8 MCH 32.0 MCHC 35.3 RDW Std Deviation 39.5 RDW Coeff of Nella 11.8 Plt Count 249 MPV 9.2 Immature Gran % (Auto) 0.0 Neut % (Auto) 61.4 Lymph % (Auto) 26.9 [place] % (Auto) 6.7 Eos % (Auto) 4.3 Baso % (Auto) 0.7 Immature Gran # (Auto) 0.00 Neut # (Auto) 2.74 Lymph # (Auto) 1.20 [place] # (Auto) 0.30 Eos # (Auto) 0.19 Baso # (Auto) 0.03 PT INR Sodium 135 L Potassium Chloride 105 Carbon Dioxide 27 Anion Gap 3.0 BUN 19 H Creatinine 0.94 Est Cr Clr Drug Dosing 103.6 Est GFR ( Amer) 130.1 Est GFR (Non-Af Amer) 112.2 BUN/Creatinine Ratio 20.5 H Glucose 93 Fasting Glucose Calcium 9.4 Magnesium Total Bilirubin 0.3 AST ALT 33 Alkaline Phosphatase 52 Total Creatine Kinase CK-MB (CK-2) < 1.0 CK/CKMB % Calc TNP Troponin I < 0.015 Total Protein 8.0 Albumin 4.5 Globulin 3.5 Albumin/Globulin Ratio 1.3 Triglycerides Cholesterol LDL Cholesterol, Calc VLDL Cholesterol, Calc HDL Cholesterol Cholesterol/HDL Ratio TSH 1.450 Urine Color Urine Appearance Urine pH Ur Specific [place] Urine Protein Urine Glucose (UA) Urine Ketones Urine Blood Urine Nitrite Urine Bilirubin Urine Urobilinogen Ur Leukocyte Esterase Salicylates < 1.7 L Urine Opiates Screen Ur Methadone, Qual Acetaminophen < 2 L Urine Barbiturates Ur Phencyclidine (PCP) U Amphetamin/Meth Scrn MDMA (Ecstasy) Screen U Benzodiazepines Scrn Ur Cocaine Metabolite U Marijuana (THC) Screen Ethyl Alcohol mg/dL 08/13/19 08/13/19 08/13/19 16:49 16:49 16:50 WBC RBC Hgb Hct MCV MCH MCHC RDW Std Deviation RDW Coeff of Nella Plt Count MPV Immature Gran % (Auto) Neut % (Auto) Lymph % (Auto) [place] % (Auto) Eos % (Auto) Baso % (Auto) Immature Gran # (Auto) Neut # (Auto) Lymph # (Auto) [place] # (Auto) Eos # (Auto) Baso # (Auto) PT 38.5 H INR 4.2 H Sodium Potassium Chloride Carbon Dioxide Anion Gap BUN Creatinine Est Cr Clr Drug Dosing Est GFR ( Amer) Est GFR (Non-Af Amer) BUN/Creatinine Ratio Glucose Fasting Glucose Calcium Magnesium Total Bilirubin AST ALT Alkaline Phosphatase Total Creatine Kinase CK-MB (CK-2) CK/CKMB % Calc Troponin I Total Protein Albumin Globulin Albumin/Globulin Ratio Triglycerides Cholesterol LDL Cholesterol, Calc VLDL Cholesterol, Calc HDL Cholesterol Cholesterol/HDL Ratio TSH Urine Color Urine Appearance Urine pH Ur Specific [place] Urine Protein Urine Glucose (UA) Urine Ketones Urine Blood Urine Nitrite Urine Bilirubin Urine Urobilinogen Ur Leukocyte Esterase Salicylates Urine Opiates Screen Neg Ur Methadone, Qual Neg Acetaminophen Urine Barbiturates Neg Ur Phencyclidine (PCP) Neg U Amphetamin/Meth Scrn Neg MDMA (Ecstasy) Screen Neg U Benzodiazepines Scrn Neg Ur Cocaine Metabolite Neg U Marijuana (THC) Screen Neg Ethyl Alcohol mg/dL < 3.0 08/13/19 08/14/19 08/14/19 16:50 07:36 07:36 WBC 4.40 L RBC 4.65 L Hgb 14.9 Hct 42.2 MCV 90.8 MCH 32.0 MCHC 35.3 RDW Std Deviation 39.0 RDW Coeff of Nella 11.9 Plt Count 230 MPV 9.3 Immature Gran % (Auto) 0.0 Neut % (Auto) 52.3 Lymph % (Auto) 35.0 [place] % (Auto) 7.5 Eos % (Auto) 4.5 Baso % (Auto) 0.7 Immature Gran # (Auto) 0.00 Neut # (Auto) 2.30 Lymph # (Auto) 1.54 [place] # (Auto) 0.33 Eos # (Auto) 0.20 Baso # (Auto) 0.03 PT 32.1 H INR 3.4 H Sodium Potassium Chloride Carbon Dioxide Anion Gap BUN Creatinine Est Cr Clr Drug Dosing Est GFR ( Amer) Est GFR (Non-Af Amer) BUN/Creatinine Ratio Glucose Fasting Glucose Calcium Magnesium Total Bilirubin AST ALT Alkaline Phosphatase Total Creatine Kinase CK-MB (CK-2) CK/CKMB % Calc Troponin I Total Protein Albumin Globulin Albumin/Globulin Ratio Triglycerides Cholesterol LDL Cholesterol, Calc VLDL Cholesterol, Calc HDL Cholesterol Cholesterol/HDL Ratio TSH Urine Color Yellow Urine Appearance Clear Urine pH 5.0 Ur Specific [place] 1.015 Urine Protein Negative Urine Glucose (UA) Negative Urine Ketones Negative Urine Blood Negative Urine Nitrite Negative Urine Bilirubin Negative Urine Urobilinogen Negative Ur Leukocyte Esterase Negative Salicylates Urine Opiates Screen Ur Methadone, Qual Acetaminophen Urine Barbiturates Ur Phencyclidine (PCP) U Amphetamin/Meth Scrn MDMA (Ecstasy) Screen U Benzodiazepines Scrn Ur Cocaine Metabolite U Marijuana (THC) Screen Ethyl Alcohol mg/dL 08/14/19 08/15/19 08/15/19 07:36 07:33 07:33 WBC RBC Hgb Hct MCV MCH MCHC RDW Std Deviation RDW Coeff of Nella Plt Count MPV Immature Gran % (Auto) Neut % (Auto) Lymph % (Auto) [place] % (Auto) Eos % (Auto) Baso % (Auto) Immature Gran # (Auto) Neut # (Auto) Lymph # (Auto) [place] # (Auto) Eos # (Auto) Baso # (Auto) PT 25.2 H INR 2.6 H Sodium 139 Potassium 4.0 Chloride 108 H Carbon Dioxide 27 Anion Gap 4.0 BUN 16 Creatinine 0.97 Est Cr Clr Drug Dosing 95.7 Est GFR ( Amer) 125.2 Est GFR (Non-Af Amer) 108.1 BUN/Creatinine Ratio 16.6 Glucose 80 Fasting Glucose 83 Calcium 9.6 Magnesium 2.4 Total Bilirubin AST ALT Alkaline Phosphatase Total Creatine Kinase CK-MB (CK-2) CK/CKMB % Calc Troponin I Total Protein Albumin Globulin Albumin/Globulin Ratio Triglycerides 78 Cholesterol 177 LDL Cholesterol, Calc 117 VLDL Cholesterol, Calc 16 HDL Cholesterol 44 Cholesterol/HDL Ratio 4 TSH Urine Color Urine Appearance Urine pH Ur Specific [place] Urine Protein Urine Glucose (UA) Urine Ketones Urine Blood Urine Nitrite Urine Bilirubin Urine Urobilinogen Ur Leukocyte Esterase Salicylates Urine Opiates Screen Ur Methadone, Qual Acetaminophen Urine Barbiturates Ur Phencyclidine (PCP) U Amphetamin/Meth Scrn MDMA (Ecstasy) Screen U Benzodiazepines Scrn Ur Cocaine Metabolite U Marijuana (THC) Screen Ethyl Alcohol mg/dL 08/17/19 08/19/19 09:01 07:52 WBC RBC Hgb Hct MCV MCH MCHC RDW Std Deviation RDW Coeff of Nella Plt Count MPV Immature Gran % (Auto) Neut % (Auto) Lymph % (Auto) [place] % (Auto) Eos % (Auto) Baso % (Auto) Immature Gran # (Auto) Neut # (Auto) Lymph # (Auto) [place] # (Auto) Eos # (Auto) Baso # (Auto) PT 23.2 H 18.8 H INR 2.4 H 1.9 H Sodium Potassium Chloride Carbon Dioxide Anion Gap BUN Creatinine Est Cr Clr Drug Dosing Est GFR ( Amer) Est GFR (Non-Af Amer) BUN/Creatinine Ratio Glucose Fasting Glucose Calcium Magnesium Total Bilirubin AST ALT Alkaline Phosphatase Total Creatine Kinase CK-MB (CK-2) CK/CKMB % Calc Troponin I Total Protein Albumin Globulin Albumin/Globulin Ratio Triglycerides Cholesterol LDL Cholesterol, Calc VLDL Cholesterol, Calc HDL Cholesterol Cholesterol/HDL Ratio TSH Urine Color Urine Appearance Urine pH Ur Specific [place] Urine Protein Urine Glucose (UA) Urine Ketones Urine Blood Urine Nitrite Urine Bilirubin Urine Urobilinogen Ur Leukocyte Esterase Salicylates Urine Opiates Screen Ur Methadone, Qual Acetaminophen Urine Barbiturates Ur Phencyclidine (PCP) U Amphetamin/Meth Scrn MDMA (Ecstasy) Screen U Benzodiazepines Scrn Ur Cocaine Metabolite U Marijuana (THC) Screen Ethyl Alcohol mg/dL Hospital Course (1) Depression: 12/5 -continue voluntary inpatient treatment for worsening mood and suicidal ideation with multiple plans. Every 15 minute checks for safety. -Encourage group participation, work on healthy coping skills and discharge safety plan. -Coordinate with outpatient clinicians (including psychiatrist in his home town whom he still sees); family meeting with supports. -Discussed several options, including titrating quetiapine (which he declined due to side effects on higher doses in the past), switching quetiapine to another augmenting agent, or switching duloxetine to another antidepressant. Discussed options of SSRIs or SNRI's, and he ultimately agreed to a trial of venlafaxine XR after review of risks, benefits, and side effects. Orders written for cross taper over the next 6 days; monitor and may need to slow taper if he experiences any side effects. -Will continue quetiapine 100mg HS. Order FLP and FG for monitoring on an atypical antipsychotic, as states he never had them. -Get records from Azucena Alonzo at [facility]. Refer for [facility], and help him to follow up on [facility] referral (states he called [facility] multiple times, but never heard back). 08/15 - Continue scheduled taper from duloxetine to venlafaxine - Family meeting with mother scheduled for this afternoon - Continue to encourage engagement in group and recreational programming - 1:1 counseling as indicated, especially encouraged after revealing today that he feels suicidal thoughts are a means of gaining "control" in situations - Continue to coordinate aftercare 08/17 --tolerating cross taper to Effexor XR. Improved today vs 08/16 08/18 last day of 75mg effexor increase to 150mg tomorrow alongside 60mg cymbalta and team to reassess, due to downswing in mood, and fleeting SI would like to observe additional time due to risk of premature discharge and resurgance of safety concerns and hopelessness patient agrees 08/19 - Pt to receive last dose of duloxetine 30mg tomorrow morning - current cross-taper schedule has him remaining on 150mg of venlafaxine - Pt reporting mild improvement from yesterday, but still not convinced of ability to contract for safety outside of hospital setting - agreeable to remain in treatment with likely discharge tomorrow - Pt has a therapy appointment and a meeting with [facility] tomorrow (2) Pacemaker: 08/14 -was consult placed on admission, and Coumadin held due to INR 4.2. -INR 3.4 today, and Coumadin has been resumed. Appreciate recommendations. 08/15 - Appreciate hospitalist recommendations regarding Coumadin management - INR now within goal range of 2.0 - 3.0; today reading at 2.6 - Outpatient wrecking supervisor updated and care was coordinated - recommending continuation of lisinopril 08/19 - Hospitalist service informed of INR - 1.9 this morning; recommend continuing current Coumadin schedule - with consideration to adjust doses if his next reading is subtherapeutic - Appreciate recommendations Mental Health & Subst Abuse Tx Psychiatrist Name of Psychiatrist: Tavares Ramirez - Tamiko Alonzo Psychiatrist's Date of Appointment with Psychiatrist: 08/27/19 Time of Appointment with Psychiatrist: 3:45 Psychiatric Appointment Comment: [id number] [place] [address] Therapist Name of Therapist: [facility] - Kaela Swift LCSW Therapist's Date of Therapist Appointment: 08/20/19 Time of Therapist Appointment: 11:30 AM Therapy Appointment Comment: [phone] René Tellez, [facility] [address] [facility] [address] Hat Cleaner Name of Hat Cleaner: [facility] and Advocacy: Zack Herron Phone Number for Hat Cleaner: [phone] Date of Appointment with Hat Cleaner: 08/20/19 Time of Appointment with Hat Cleaner: 2:00pm Case Management Appointment Comment: [address] [facility] Post Discharge Appointments Primary Care Physician Name Of Family Doctor: [facility] Primary Care Time of Appointment with PCP: Please follow up as needed Provider Appointment Comment: [place] [address] Specialist Name of Specialist: [facility] [place] - Dr. Rahat Huerta Phone Number for Specialist: Date of Appointment with Specialist: 09/19/19 Time of Appointment with Specialist: 12:20 pm Specialty Appointment Comment: [address] [address], [place] [address] Smoking Cessation Counseling Tobacco Cessation Medication Prescribed at Discharge: Not Applicable/Non-Smoker Contact Information Discharge Discharge Address: [address] [place] [address], [address] [place] [address] Discharge Plan Discharge Items Patient Disposition: Home - Self-Care Reason For Visit: MDD Discharge Diagnosis: - Major depressive disorder Condition on Discharge: Fair Activity: Resume your previous activity Non-emergency contact: Primary Care Provider, [facility] [place], Psychiatrist and Therapist Call non-emergency contact if: you have any medication questions and your symptoms worsen Follow-up/Referrals: PCP,NO [Primary Care Provider] - Diet: Regular Addtl Attending Provider Instructions: SPECIAL CARE INSTRUCTIONS: 1. Follow through with your scheduled aftercare appointments. If unable to keep an appointment, please call to reschedule. 2. Take your medication only as prescribed. Medication should not be changed or stopped without the approval of your doctor. In the event of worsening symptoms or concerns about side effects, contact your doctor immediately. 3. Utilize new healthy coping skills, anger management skills, and stress management skills learned during your hospitalization. Journal feelings and process them with a support person. Identify stressors or situations that may result in relapse, deterioration or inappropriate behaviors and develop a plan to deal with those issues. 4. If your coping skills are ineffective and you are in crisis, contact your outpatient providers for direction. If unable to reach your providers, please call the CAN HELP LINE AT or go to the closest Emergency Room. 5. Avoid alcohol and un-prescribed drugs. 6. You have been provided with the Mental Health Advance Directives Pamphlet for your review. AFTERCARE APPOINTMENTS: * Please call your insurance company prior to your scheduled appointment to confirm your aftercare providers are covered. Take your insurance information to your appointments. WHO TO CALL AND WHEN: Medical Emergencies: For questions or emergencies related to your hospital stay, please contact the Inpatient Behavioral Health Unit at [phone]. A editor continuity and script is on-call 02/04 for the Behavioral Health Unit for emergencies At any time you feel your situation is an emergency, you may also call [address] [place] [address]. Your Discharge Instructions noted above were prepared by provider Fani Mello PA-C. Pending Studies at Discharge: No Stand-Alone Forms: My [facility] [employer], Smoking Cessation, Suicide Prevention Resources Medications and DC Order Prescriptions: New venlafaxine 150 mg capsule,extended release 24hr 150 mg PO QAM 30 Days Qty: 30 RF: 0 famotidine 20 mg Tablet 20 mg PO BID 30 Days Qty: 60 RF: 0 Continued gabapentin 600 mg Tablet 600 mg PO TID RF: 0 quetiapine [Seroquel] 100 mg Tablet 100 mg PO HS RF: 0 acetaminophen 500 mg Tablet 1,000 mg PO QID PRN (Reason: Pain) RF: 0 warfarin 3 mg Tablet 3 mg PO 2XWK RF: 0 lisinopril [Zestril] 10 mg Tablet 10 mg PO DAILY RF: 0 warfarin [Coumadin] 2 mg Tablet 2 mg PO USEASDIRECTD RF: 0 Archana-D 24 Hour 180-240 mg Tablet Extended Release 24 Hr 1 tab PO QAM RF: 0 terbinafine HCl 1 % Cream 1 applic TOPICAL DAILY RF: 0 diphenhydramine HCl [Benadryl] 25 mg Capsule 25 mg PO HS PRN (Reason: Sleep) RF: 0 Discontinued duloxetine [Cymbalta] 60 mg Capsule,Delayed Release(Dr/Ec) 120 mg PO DAILY RF: 0 Discharge Orders: Discharge Order (Routine); Ordered 08/20/19 Ordered By: Fani Mello Admission Data Admit Date/Time: 08/13/19 21:00 Attending Provider: Gabriella Story Admit Provider: Gabriella Story Primary Care Provider: PCP,NO Other Providers: Rene Slater ; Jabari Leong ; Fani Patten. Other Interventions: Discharge Summary Assessment (RN) Last Done: 08/20/19 10:19 DC Date/Time DO NOT enter until pt leaves facility: 08/20/19 11:05 Coding Level of Care Code 54103 D/C day mgmt > 30 min Diagnoses Depression F33.2 Active/Remission status: currently active Depression Type: major depressive disorder Major depression episode severity: severe Major depression recurrence: recurrent Psychotic features: without psychotic features Pacemaker Z95.0
== END 2019-08-20 11:05 | disposition home or self-care (01) | DRG 885 ==
LOC: ED 15:40 → SUATTDRO 21:00 → 3S 21:00